=== PATIENT | male | born 1970 | race Two or more races ===

== ENCOUNTER 2021-06-16 16:16 | Emergency (ER) | payer OTHER ==
[2021-06-16 16:22] VITALS: BP 165/81; PULSE 107; RESP 18; TEMP 98.2
[2021-06-16] MEDS ORDERED: HYDROcodone/APAP 5-325MG 1 EACH TAB PO STA (16:37)
--- NOTE | 2021-06-16 16:44 | ED ---
Fall HPI - General Chief Complaint: Neck Pain/Injury Stated Complaint: Fall Time Seen by Provider: 06/16/21 16:32 Source: patient Mode of arrival: wheelchair - History of Present Illness Initial Comments: This is a pleasant 50-year-old male who got out of his truck and slipped on ice. Patient landed on his right low back area is complaining of pain to this area which is exacerbated by movement. States pain is sharp in nature. No radiation of pain. He denies any hip pain. No buttock pain. No lower extremity or upper extremity pain. Mild stiffness in the neck. Although he does not believe he struck his head or neck. Denies any chest pain. No abdominal pain. No other orthopedic complaints. No numbness or tingling. Fall, patient had no preceding events. No blood thinners. Denies chest pain or shortness of breath. No nausea or vomiting. No change in bowel much urination. No changes in vision or hearing. No vertigo. Patient has a history of hypertension, diabetes mellitus MD Complaint: fall - Related Data Previous Rx's Medication Instructions Recorded Cyclobenzaprine [Flexeril] 10 mg PO TID PRN #20 tab 06/16/21 HYDROcodone/APAP 5-325MG [[place]rop 1 tab PO Q6HR PRN 3 Days #12 tab 06/16/21 5-325] Naproxen [Naprosyn] 375 mg PO Q12HR PRN #20 tablet 06/16/21 Allergies Allergy/AdvReac Type Severity Reaction Status Date / Time No Known Allergies Allergy Verified 06/16/21 16:19 Review of Systems ROS Statement: Those systems with pertinent positive or pertinent negative responses have been documented in the HPI. ROS Other: All systems not noted in ROS Statement are negative. Past Medical History Past Medical History: Diabetes Mellitus, Hypertension Additional Past Medical History / Comment(s): aortic stenosis History of Any Multi-Drug Resistant Organisms: None Reported Past Surgical History: Cholecystectomy, Orthopedic Surgery Past Psychological History: No Psychological Hx Reported Smoking Status: Never smoker Past Alcohol Use History: None Reported Past Drug Use History: None Reported General Exam - General Exam Comments Initial Comments: 50-year-old male in no minimal distress at the time I'm seeing him, cranial nerves II through XII are intact. Patient is alert and oriented 4. Carlito Coma Scale is 15. Limitations: no limitations General appearance: alert, in distress Head exam: Present: atraumatic, normocephalic, normal inspection Eye exam: Present: normal appearance, PERRL, EOMI. Absent: scleral icterus, conjunctival injection, periorbital swelling ENT exam: Present: normal exam, mucous membranes moist Neck exam: Present: normal inspection, full ROM, other (Patient has no significant tenderness but does complain of some stiffness. No midline tenderness.). Absent: tenderness, meningismus, lymphadenopathy Respiratory exam: Present: normal lung sounds bilaterally. Absent: respiratory distress, wheezes, rales, rhonchi, stridor Cardiovascular Exam: Present: regular rate, normal rhythm, systolic murmur (Carver best at the right second intercostal space). Absent: diastolic murmur, rubs, gallop, clicks GI/Abdominal exam: Present: soft, normal bowel sounds. Absent: distended, tenderness, guarding, rebound, rigid Extremities exam: Present: normal inspection, full ROM, normal capillary refill, other (No significant tenderness to any major joints. Full range of motion all major joints. Full strength on each muscle groups. Other than the aforementioned back tenderness no significant tenderness otherwise.). Absent: tenderness, pedal edema, joint swelling, calf tenderness Back exam: Present: normal inspection, tenderness, paraspinal tenderness, vertebral tenderness (Patient has tenderness over the lumbar area approximately in the L3/L4 area. No break in skin integrity. No erythema. Straight leg raise is negative bilaterally.). Absent: full ROM, muscle spasm, rash noted Neurological exam: Present: alert, oriented X3, CN II-XII intact Psychiatric exam: Present: normal affect, normal mood Skin exam: Present: warm, dry, intact, normal color. Absent: rash Course Vital Signs 06/16/21 16:19 Temperature 98.2 F Pulse Rate 107 H Respiratory 18 Rate Blood Pressure 165/81 O2 Sat by Pulse 98 Oximetry - Reevaluation(s) Reevaluation #1: 06/16/21 17:51 Medical record is reviewed Symptoms are improved here in the emergency department--still has some pain. Asking for something else such as a muscle relaxer or another injection. Patient is informed of results and questions answered Patient in no distress Medical Decision Making - Medical Decision Making Patient has bilateral lumbar paraspinal tenderness. No spinal tenderness otherwise. No neurologic impairment. No evidence of cauda equina syndrome. No radicular pain. -There are no red flags for concerning back pathology. Specifically: -No history of cancer, this is not a mass effect, MRI not indicated. -No anticoagulation, this is not a bleed. -No fevers, no IVDU, this is not an infectious process. -With a normal neuro exam, and no urinary or bowel retention or incontinence, there is no clinical sign of motor defect or cauda equina - MRI is not indicated at this point. -No pulsating abdominal mass or risk factors for AAA. -Pain is relieved with rest, which is also less concerning. -We will treat symptomatically and discharge home with follow up instructions. -Stretching/strengthening exercise given to patient and they will be referred to physical therapy -Patient is instructed to use [id number] analgesics as directed on packaging for pain. Given the history, x-rays are warranted. We'll obtain. No evidence of head or neck trauma. No blood thinners. Heart murmur was noted, question patient, patient has history of aortic stenosis. No current symptomology related to this. Patient was told to return to the ER for any signs or symptoms worsen. Told to return immediately if any other problems arise. All questions answered. Treatment plan discussed. Patient in agreement Every effort has been made to ensure accuracy of this dictation. However, due to the limitations of electronic medical records and dictation devices, errors in charting still occur. - EKG Data -: EKG Interpreted by Me - Radiology Data Radiology results: report reviewed (No acute findings on x-rays. I did review these films myself. ), image reviewed Disposition Clinical Impression: Lumbar contusion, Lumbar strain, Cervical strain, acute, Fall Disposition: HOME SELF-CARE Condition: Stable Instructions (If sedation given, give patient instructions): Cervical Strain (ED), Low Back Strain (ED) Additional Instructions: Follow-up with your regular physician as directed. Return to the ER immediately if any symptoms worsen, new symptoms arise, or any other problems develop. Prescriptions: Cyclobenzaprine [Flexeril] 10 mg PO TID PRN #20 tab PRN Reason: Spasms Naproxen [Naprosyn] 375 mg PO Q12HR PRN #20 tablet PRN Reason: Pain HYDROcodone/APAP 5-325MG [[place]rop 5-325] 1 tab PO Q6HR PRN 3 Days #12 tab PRN Reason: Pain Is patient prescribed a controlled substance at d/c from ED?: Yes When asked, does pt state using other controlled substances?: No If opioid is for acute pain is fill amount 7 days or less?: Yes Referrals: Tami Cooper DO [Primary Care Provider] - 06/19/21 Time of Disposition: 17:45
--- NOTE | 2021-06-16 17:25 | XR ---
EXAMINATION TYPE: XR lumbar spine 2 or 3V DATE OF EXAM: 06/16/2021 COMPARISON: NONE HISTORY: Back pain TECHNIQUE: 3 views FINDINGS: Lumbar vertebrae are normal alignment. There is slight thoracolumbar levoscoliosis. There i s degenerative spurring anteriorly in the thoracic and lumbar spine. No compression fracture. Sacroil iac joints are intact. There are clips from cholecystectomy. IMPRESSION: Multilevel spondylotic changes. No fracture.
--- NOTE | 2021-06-16 17:27 | XR ---
EXAMINATION TYPE: XR cervical spine comp DATE OF EXAM: 06/16/2021 COMPARISON: NONE HISTORY: Pain TECHNIQUE: 3 views FINDINGS: Cervical vertebra have normal alignment. Posterior elements are intact. There is anterior s purring at C5-6 and C6-7. The atlantoaxial facet joint is normal. There are no cervical ribs. IMPRESSION: Spondylosis at C5-6 and C6-7. No fracture. No significant neural foraminal impingement.
[2021-06-16] MEDS ORDERED: ORPHENADRINE 30 MG/ML 2 ML VIAL IM STA (17:44)
[2021-06-16] MEDS ORDERED: KETOROLAC 15 MG/ML 1 ML VIAL IM STA (17:44)
== END 2021-06-16 18:00 | disposition home or self-care (01) ==
LOC: EC 16:16
DX: S16.1XXA Strain of muscle, fascia and tendon at neck level, initial encounter (principal); S39.012A Strain of muscle, fascia and tendon of lower back, initial encounter; E11.9 Type 2 diabetes mellitus without complications; I10 Essential (primary) hypertension; W00.0XXA Fall on same level due to ice and snow, initial encounter
CPT/HCPCS: 72050; 72100; 99283; 96372; J2360; J1885

== ENCOUNTER → 2022-10-22 | Outpatient (CLI) | payer OTHER ==
--- NOTE | 2022-10-23 10:06 | CA ---
Transthoracic Echo Report Name: Chuckie Jhaveri Age: 52 Gender: M : 1970 Exam Date: 10/22/2022 14:51 Exam Location: [facility] Ht (in): 72 Wt (lb): 255 Ordering Physician: Tami Cooper DO Attending/Referring Phys: Content Strategist Apryl Bains RDCS Procedure CPT: Indications: I50.32 CHRONIC DIASTOLIC (CONGESTIVE) HEART FAILUR Cardiac Hx: AOV replaced 2021 Technical Quality: Technically difficult study Contrast 1: Total Dose (mL): Contrast 2: Total Dose (mL): MEASUREMENTS (Male / Female) Normal Values 2D ECHO LV Diastolic Diameter PLAX 5.6 cm 4.2 - 5.9 / 3.9 - 5.3 cm LV Systolic Diameter PLAX 3.5 cm IVS Diastolic Thickness 1.3 cm 0.6 - 1.0 / 0.6 - 0.9 cm LVPW Diastolic Thickness 1.5 cm 0.6 - 1.0 / 0.6 - 0.9 cm LV Relative Wall Thickness 0.5 RV Internal Dim ED PLAX 2.9 cm LVOT Diameter 2.1 cm LA Systolic Diameter LX 4.0 cm 3.0 - 4.0 / 2.7 - 3.8 cm LV Diastolic Volume MOD BP 135.9 cm??? 67 - 155 / 56 - 104 cm??? LV Systolic Volume MOD BP 61.3 cm??? 22 - 58 / 19 - 49 cm??? LV Ejection Fraction MOD BP 54.9 % >= 55 % LV Cardiac Index MOD BP 2664.8 cm???/min???m??? LV Diastolic Volume MOD 4C 115.1 cm??? LV Systolic Volume MOD 4C 56.5 cm??? LV Ejection Fraction MOD 4C 50.9 % LV Cardiac Index MOD 4C 2095.1 cm???/min???m??? LV Diastolic Length 4C 8.0 cm LV Systolic Length 4C 7.4 cm LV Diastolic Volume MOD 2C 133.1 cm??? LV Systolic Volume MOD 2C 62.3 cm??? LV Ejection Fraction MOD 2C 53.2 % LV Cardiac Index MOD 2C 2530.5 cm???/min???m??? LV Diastolic Length 2C 8.0 cm LV Systolic Length 2C 7.3 cm LA Volume 60.4 cm??? 18 - 58 / 22 - 52 cm??? M-MODE Aortic Root Diameter MM 3.9 cm MV E Point Septal Separation 0.8 cm DOPPLER AV Peak Velocity 223.2 cm/s AV Peak Gradient 19.9 mmHg AV Mean Velocity 142.8 cm/s AV Mean Gradient 9.4 mmHg AV Velocity Time Integral 38.9 cm AI Peak Velocity 253.5 cm/s AI Peak Gradient 25.7 mmHg AI Pressure Half Time 600.9 ms LVOT Peak Velocity 181.2 cm/s LVOT Peak Gradient 13.1 mmHg AV Area Cont Eq pk 2.9 cm??? MV Peak Velocity 133.3 cm/s MV Peak Gradient 7.1 mmHg MV Mean Velocity 82.4 cm/s MV Mean Gradient 3.2 mmHg MV Velocity Time Integral 30.8 cm MV Area PHT 3.1 cm??? Mitral E Point Velocity 100.1 cm/s Mitral A Point Velocity 109.9 cm/s Mitral E to A Ratio 0.9 MV Deceleration Time 244.8 ms MV E' Velocity 5.9 cm/s Mitral E to MV E' Ratio 17.0 TR Peak Velocity 254.4 cm/s TR Peak Gradient 25.9 mmHg Right Ventricular Systolic Press 30.2 mmHg FINDINGS Left Ventricle Left ventricular ejection fraction is estimated at 55-60 %. Left ventricular cavity size normal. Mild concentric LVH Right Ventricle Normal right ventricular size. Right ventricular systolic pressure within normal limits. Right Atrium Normal right atrial size. Left Atrium Mildly increased left atrial volume. Mitral Valve Mitral annular calcification. Trace to mild mitral regurgitation. Aortic Valve Prosthetic aortic valve most likely bioprosthetic (TAVR) valve. Technically difficult study. No significant stenosis. Mean gradient 9 mmHg. Moderate periprosthetic aortic regurgitation. Tricuspid Valve Structurally normal tricuspid valve. Mild tricuspid regurgitation. Pulmonic Valve Pulmonic valve not well visualized. No pulmonic regurgitation. Pericardium No pericardial effusion. Aorta Mild aortic dilatation at the level of the sinuses of valsalva 39 mm CONCLUSIONS Technically difficult study. Normal LV size and systolic function. Estimated EF 55-60% Mild concentric LVH Most likely bioprosthetic (TAVR) valve with no significant stenosis. Moderate periprosthetic aortic regurgitation seen. These findings are limited due to limited color Doppler views in technically difficult study Mild mitral regurgitation No other significant valvular disease. No prior echo to compare with. Please correlate the finding clinically. Previewed by: Reymundo Medel MD Dr Anubhav Jain (Electronically Signed) Final Date: 23 October 2022 10:05
== END | disposition home or self-care (01) ==
LOC: RADECHMAIN 14:03
PROVIDERS: ATTEND Family Medicine
DX: I50.32 Chronic diastolic (congestive) heart failure (principal); I34.0 Nonrheumatic mitral (valve) insufficiency; I35.1 Nonrheumatic aortic (valve) insufficiency; I36.1 Nonrheumatic tricuspid (valve) insufficiency
CPT/HCPCS: 93306

== ENCOUNTER 2024-02-17 15:16 | Observation (INO) | payer OTHER ==
[2024-02-17 15:23] LABS: Glucose,Whole Blood 159 mg/dL (70-110)
[2024-02-17 16:37] LABS: Basophils % (A) 1 %; Eosinophils # (A) 0.2 k/uL (0-0.7); Eosinophils % (A) 3 %; HCT 46.6 % (39.0-53.0); HGB 15.7 gm/dL (13.0-17.5); Lymphocytes # (A) 1.7 k/uL (1.0-4.8); Lymphocytes % (A) 25 %; MCHC 33.7 g/dL (31.0-37.0); Mean Platelet Volume 7.7; Monocytes # (A) 0.5 k/uL (0-1.0); Monocytes % (A) 7 %; Neutrophils # (A) 4.3 k/uL (1.3-7.7); Neutrophils % (A) 64 %; Platelet Count 258 k/uL (150-450); RBC 5.24 m/uL (4.30-5.90); RDW 12.9 % (11.5-15.5); WBC 6.7 k/uL (3.8-10.6)
[2024-02-17 16:42] LABS: Appearance,Urine Clear (Clear); Bilirubin,Urine Negative (Negative); Blood,Urine Negative (Negative); Color,Urine Colorless; Glucose,Urine (UA) 4+ (Negative); Ketones,Urine Negative (Negative); Leukocyte Esterase,Urine Negative (Negative); Nitrite,Urine Negative (Negative); Protein,Urine Negative (Negative); Specific Gravity,Urine 1.011 (1.001-1.035); Urobilinogen,Urine <2.0 mg/dL (<2.0)
[2024-02-17 16:51] LABS: ALT 30 U/L (4-49); AST 29 U/L (17-59); African American GFR (CKD) >90 (>60 ml/min/1.73 sqM); Albumin 4.7 g/dL (3.5-5.0); Alkaline Phosphatase 60 U/L (38-126); Anion Gap 6 mmol/L; Blood Urea Nitrogen 15 mg/dL (9-20); Calcium 9.1 mg/dL (8.4-10.2); Carbon Dioxide 27 mmol/L (22-30); Chloride 102 mmol/L (98-107); Creatine Kinase 132 U/L (55-170); Glucose 156 mg/dL (74-99); Non-African American GFR(CKD) >90 (>60 ml/min/1.73 sqM); Potassium 4.5 mmol/L (3.5-5.1); Sodium 135 mmol/L (137-145); Total Bilirubin 0.9 mg/dL (0.2-1.3); Total Protein 7.3 g/dL (6.3-8.2)
--- NOTE | 2024-02-17 17:02 | XR ---
EXAMINATION TYPE: XR chest 2V DATE OF EXAM: 02/17/2024 4:40 PM COMPARISON: None CLINICAL INDICATION: Male, 53 years old with history of altered mental status; LOCATED [facility]IN [facility] TECHNIQUE: XR chest 2V Frontal and lateral views of the chest. FINDINGS: Lungs/Pleura: There is no evidence of pleural effusion, focal consolidation, or pneumothorax. Pulmonary vascularity: Unremarkable. Heart/mediastinum: Cardiomediastinal silhouette is prominent in size. Musculoskeletal: No acute osseous pathology. Midline sternotomy wires are noted. IMPRESSION: No acute cardiopulmonary disease/process. [facility], , 02/17/2024 5:00 PM
[2024-02-17 17:14] LABS: INR 1.6 (<1.2); Partial Thromboplastin Time 26.8 sec (22.0-30.0); Prothrombin Time 16.7 sec (10.0-12.5)
[2024-02-17 17:19] LABS: Amphetamine Screen,Urine Not Detected (NotDetected); Barbiturate Screen,Urine Not Detected (NotDetected); Benzodiazepines Screen,Urine Not Detected (NotDetected); Cocaine Screen,Urine Not Detected (NotDetected); Methadone Screen, Urine Not Detected (NotDetected); Opiate Screen,Urine Not Detected (NotDetected); Oxycodone Screen, Urine Not Detected (NotDetected); Phencyclidine Screen,Urine Not Detected (NotDetected); Tricyclic Antidepressant,Urine Not Detected (NotDetected); Urn Cannabinoid Scrn Not Detected (NotDetected)
--- NOTE | 2024-02-17 18:13 | CT ---
EXAMINATION TYPE: CT brain wo con DATE OF EXAM: 02/17/2024 6:00 PM COMPARISON: None. CLINICAL INDICATION: Male, 53 years old with history of Neuro deficit, acute, stroke suspected, confu evon TECHNIQUE: Brain: Axial CT images of the brain were obtained with coronal and sagittal reformats created and rev iewed. Contrast used: None. Oral contrast used: None. CT DLP: combined 2211 mGycm, Automated exposure control for dose reduction was used. FINDINGS: Brain: Extra-axial spaces: No abnormal extra-axial fluid collections. Ventricular system: Within normal limits Cerebral parenchyma: Left parietal lobe encephalomalacia. No acute intraparenchymal hemorrhage or mas s effect. The conte-white junction is well differentiated. Cerebellum: Unremarkable. Mass effect: No evidence of midline shift. Intracranial vasculature: unremarkable Soft tissues: Normal. Calvarium/osseous structures: No depressed skull fracture. Paranasal sinuses and mastoid air cells: Mild scattered paranasal sinus disease. Visualized orbits: Orbital contents are intact. 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 Correlate with history of no prior history cou ld be related to onset of confusion. No evidence for acute/subacute ischemia. [facility], , 02/17/2024 6:11 PM
--- NOTE | 2024-02-17 18:24 | CT ---
EXAMINATION TYPE: CT angio head neck DATE OF EXAM: 02/17/2024 6:00 PM COMPARISON: CT head same day. CLINICAL INDICATION: Male, 53 years old with history of Neuro deficit, acute, stroke suspected; PHH, confusion TECHNIQUE: Axially acquired helical CT angiogram of the head and neck was obtained with contrast. Axi al images are supplemented with 3D reconstructions and MIP images which were post-processed at an in dependent workstation. NASCET criteria used. Contrast used:65 ml mL of Isovue 370 with IV Contrast, Oral contrast used: None. CT DLP: combined 2211 mGycm, Automated exposure control for dose reduction was used. FINDINGS: CTA HEAD: No evidence of acute intracranial hemorrhage, mass effect, or midline shift. The ventricles, sulci, a nd cisterns are unremarkable. Vertebral arteries: The vertebral arteries are patent. Vertebral artery dominance: Right diminutive intracranial portion on the left vertebral artery. Possi jaqui terminating is a posterior inferior cerebellar artery. Basilar artery: The basilar artery is intact. The basilar artery bifurcation is normal. Internal Carotid arteries: The cervical, petrous, cavernous and supraclinoid segments are normal. KAMRAN: Patent with no evidence of aneurysm. ACOM: Present without evidence of aneurysm. MCA: Patent with no evidence of aneurysm. FOOD COUNTER ATTENDANT: Patent with no evidence of aneurysm. PCOM: Hypoplastic bilaterally. Dural sinuses: Patent. CTA NECK: Right Carotid System: The common carotid artery and external carotid artery are patent. The carotid bifurcation demonstrate s no evidence of hemodynamically significant stenosis. The remaining portions of the internal carotid artery demonstrate normal size without significant narrowing. Left Carotid System: The common carotid artery and external carotid artery are patent. The carotid bifurcation demonstrate s no evidence of hemodynamically significant stenosis. The remaining portions of the internal carotid artery demonstrate normal size without significant narrowing. Vertebral arteries are patent without evidence hemodynamically significant stenosis. There is a three-vessel aortic arch. The origins of the great vessels are patent. No evidence of hemo dynamically significant stenosis. IMPRESSION: 1. No evidence of dissection of the cervical internal carotid arteries or vertebral arteries. 2. No any evidence of significant stenosis at the carotid bifurcations. 3. No evidence of intracranial high-grade stenosis or intracranial aneurysm. 4. Diminutive intracranial portion of the left vertebral artery. [facility], Workstation: [id number], 02/17/2024 6:21 PM
--- NOTE | 2024-02-17 19:40 | ED ---
General Adult HPI - General Chief complaint: Neuro Symptoms/Deficit Stated complaint: Dizziness,AMS Source: patient Mode of arrival: ambulatory Limitations: no limitations - History of Present Illness Initial comments: 53-year-old male with past medical history of mechanical valve on Coumadin who presents to the emergency department reporting confusion and inability to find his words for the past month. States that he has had intermittent episodes where he feels like he cannot find his words. He has been in "a fog". When he lays down to sleep at night he has a vertiginous feeling. Denies any weakness in his arms or legs. No visual changes. He denies any head injury. No history of stroke. He does take Coumadin for his heart valve. States that he was told by his budget assistant that his INR should be between 1 and 2. His INR yesterday was 1.5 and his budget assistant was okay with this. He denies history of stroke. No swallowing difficulties. He denies any chest pain or shortness of breath. No other alleviating, precipitating modifying factors - Related Data Home Medications Medication Instructions Recorded Confirmed Empagliflozin [Jardiance] 25 mg PO DAILY 02/17/24 02/17/24 Metoprolol Succinate (ER) [Toprol 25 mg PO DAILY 02/17/24 02/17/24 XL] Semaglutide [Ozempic] 1 mg SQ MO 02/17/24 02/17/24 Spironolactone 12.5 mg PO DAILY 02/17/24 02/17/24 Warfarin [Coumadin] 7.5 mg PO SUTUTHSA@199902/17/24 02/17/24 Warfarin [Coumadin] 10 mg PO MOWEFR@199902/17/24 02/17/24 metFORMIN HCL 1,000 mg PO BID 02/17/24 02/17/24 Previous Rx's Medication Instructions Recorded levETIRAcetam [Keppra] 500 mg PO Q12HR 30 Days #60 tab 02/19/24 Allergies Allergy/AdvReac Type Severity Reaction Status Date / Time No Known Allergies Allergy Verified 02/17/24 18:34 Review of Systems ROS Statement: Those systems with pertinent positive or pertinent negative responses have been documented in the HPI. ROS Other: All systems not noted in ROS Statement are negative. Past Medical History Past Medical History: Diabetes Mellitus, Hypertension Additional Past Medical History / Comment(s): aortic stenosis History of Any Multi-Drug Resistant Organisms: None Reported Past Surgical History: Cholecystectomy, Orthopedic Surgery Past Psychological History: No Psychological Hx Reported Smoking Status: Never smoker Past Alcohol Use History: Occasional Past Drug Use History: None Reported General Exam Limitations: no limitations General appearance: alert, in no apparent distress Head exam: Present: atraumatic, normocephalic, normal inspection Eye exam: Present: normal appearance, PERRL, EOMI. Absent: scleral icterus, conjunctival injection, periorbital swelling ENT exam: Present: normal exam, mucous membranes moist Neck exam: Present: normal inspection. Absent: tenderness, meningismus, lymphadenopathy Respiratory exam: Present: normal lung sounds bilaterally. Absent: respiratory distress, wheezes, rales, rhonchi, stridor Cardiovascular Exam: Present: regular rate, normal rhythm, normal heart sounds. Absent: systolic murmur, diastolic murmur, rubs, gallop, clicks GI/Abdominal exam: Present: soft, normal bowel sounds. Absent: distended, tenderness, guarding, rebound, rigid Extremities exam: Present: normal inspection, full ROM, normal capillary refill. Absent: tenderness, pedal edema, joint swelling, calf tenderness Back exam: Present: normal inspection Neurological exam: Present: alert, oriented X3, CN II-XII intact Psychiatric exam: Present: normal affect, normal mood Skin exam: Present: warm, dry, intact, normal color. Absent: rash Course Vital Signs 02/17/24 02/17/24 02/17/24 15:17 16:27 17:10 Temperature 97.5 F L Pulse Rate 90 91 89 Respiratory 20 18 18 Rate Blood Pressure 186/93 137/83 O2 Sat by Pulse 99 97 Oximetry 02/17/24 02/17/24 02/17/24 17:37 18:25 20:15 Temperature 98.2 F Pulse Rate 88 82 100 Respiratory 18 18 20 Rate Blood Pressure 144/74 128/77 113/76 O2 Sat by Pulse 96 97 95 Oximetry 02/17/24 21:06 Temperature 98.2 F Pulse Rate 89 Respiratory 20 Rate Blood Pressure 125/69 O2 Sat by Pulse 95 Oximetry Medical Decision Making - Medical Decision Making Was pt. sent in by a medical professional or institution (, PA, GLASSWARE DEFECT REPAIRER, urgent care, hospital, or fdc...) When possible be specific @ -No Did you speak to anyone other than the patient for history (EMS, parent, family, police, friend...)? What history was obtained from this source @ -Spoke with brother for history Did you review nursing and triage notes (agree or disagree)? Why? @ -I reviewed and agree with nursing and triage notes Were old charts reviewed (outside hosp., previous admission, EMS record, old EKG, old radiological studies, urgent care reports/EKG's, fdc records)? Report findings @ -No old charts were reviewed Differential Diagnosis (chest pain, altered mental status, abdominal pain women, abdominal pain men, vaginal bleeding, weakness, fever, dyspnea, syncope, headache, dizziness, GI bleed, back pain, seizure, CVA, palpatations, mental health, musculoskeletal)? @ -Differential Altered Mental Status: Hypoglycemia, DKA, hypercapnia, ETOH, overdose, CO poisoning, trauma, myxedema coma, HTN encephalopathy, infection, encephalitis, psychosis, intercranial hemorrhage, hepatic encephalopathy, meningitis, CVA, this is not meant to be an all-inclusive list EKG interpreted by me (3pts min.). @ -Yes and demonstrates sinus rhythm with a rate of 91. GA interval 171. QRS 145. QTc of 432. Right bundle branch block. No acute ST segment elevation X-rays interpreted by me (1pt min.). @ -Yes and demonstrates no acute process CT interpreted by me (1pt min.). @ -Yes and demonstrates a large area of encephalomalacia U/S interpreted by me (1pt. min.). @ -None done What testing was considered but not performed or refused? (CT, X-rays, U/S, labs)? Why? @ -None What meds were considered but not given or refused? Why? @ -None Did you discuss the management of the patient with other professionals (professionals i.e. , PA, GLASSWARE DEFECT REPAIRER, lab, RT, psych nurse, social studies department chair, marine oil terminal superintendent, teacher, transportation security officer, piano case and bench assembler)? Give summary @ -Spoke with [facility] for admission Was smoking cessation discussed for >3mins.? @ -No Was critical care preformed (if so, how long)? @ -No Were there social determinants of health that impacted care today? How? (Homeles sness, low income, unemployed, alcoholism, drug addiction, transportation, low edu. Level, literacy, decrease access to med. care, prison, rehab)? @ -No Was there de-escalation of care discussed even if they declined (Discuss DNR or withdrawal of care, Hospice)? DNR status @ -No What co-morbidities impacted this encounter? (DM, HTN, Smoking, COPD, CAD, Cancer, CVA, ARF, Chemo, Hep., AIDS, mental health diagnosis, sleep apnea, morbid obesity)? @ -Mechanical heart valve Was patient admitted / discharged? Hospital course, mention meds given and route, prescriptions, significant lab abnormalities, going to OR and other pertinent info. @ -Upon arrival patient seen and evaluated in bed 17. Thorough history and physical exam was performed. IV access was established. Laboratory studies were conducted. CT of the brain is performed which demonstrates a large area of encephalomalacia. I am concerned about the patient's subtherapeutic INR with visible stroke on CT. I did recommend patient be admitted to the hospital for further evaluation by neurology. Patient was agreeable to this. Spoke with [facility] for admission Undiagnosed new problem with uncertain prognosis? @ -No Drug Therapy requiring intensive monitoring for toxicity (Heparin, Nitro, Insulin, Cardizem)? @ -No Were any procedures done? @ -No Diagnosis/symptom? @ -Acute encephalopathy, acute speech deficit, encephalomalacia on CT Acute, or Chronic, or Acute on Chronic? @ -Acute Uncomplicated (without systemic symptoms) or Complicated (systemic symptoms)? @ -Complicated Side effects of treatment? @ -No Exacerbation, Progression, or Severe Exacerbation? @ -No Poses a threat to life or bodily function? How? (Chest pain, [place], [place], pneumonia, PE, COPD, DKA, ARF, appy, cholecystitis, CVA, Diverticulitis, Homicidal, Hicks icidal, threat to staff... and all critical care pts) @ -Yes as patient previously had large stroke - Lab Data Result diagrams: 02/19/24 06:29 02/19/24 06:29 Lab Results 02/17/24 02/17/24 02/17/24 Range/Units 15:22 16:24 16:24 WBC 6.7 (3.8-10.6) k/uL RBC 5.24 (4.30-5.90) m/uL Hgb 15.7 (13.0-17.5) gm/dL Hct 46.6 (39.0-53.0) % MCV 89.0 (80.0-100.0) fL MCH 30.0 (25.0-35.0) pg MCHC 33.7 (31.0-37.0) g/dL RDW 12.9 (11.5-15.5) % Plt Count 258 (150-450) k/uL MPV 7.7 Neutrophils % 64 % Lymphocytes % 25 % Monocytes % 7 % Eosinophils % 3 % Basophils % 1 % Neutrophils # 4.3 (1.3-7.7) k/uL Lymphocytes # 1.7 (1.0-4.8) k/uL Monocytes # 0.5 (0-1.0) k/uL Eosinophils # 0.2 (0-0.7) k/uL Basophils # 0.0 (0-0.2) k/uL PT 16.7 H (10.0-12.5) sec INR 1.6 H (<1.2) APTT 26.8 (22.0-30.0) sec Sodium (137-145) mmol/L Potassium (3.5-5.1) mmol/L Chloride (98-107) mmol/L Carbon Dioxide (22-30) mmol/L Anion Gap mmol/L BUN (9-20) mg/dL Creatinine (0.66-1.25) mg/dL Est GFR (CKD-EPI)AfAm (>60 ml/min/1.73 sqM) Est GFR (CKD-EPI)NonAf (>60 ml/min/1.73 sqM) Glucose (74-99) mg/dL POC Glucose (mg/dL) 159 H (70-110) mg/dL POC Glu Pit Operator ID [facility] Calcium (8.4-10.2) mg/dL Total Bilirubin (0.2-1.3) mg/dL AST (17-59) U/L ALT (4-49) U/L Alkaline Phosphatase (38-126) U/L Creatine Kinase (55-170) U/L Troponin I (0.000-0.034) ng/mL Total Protein (6.3-8.2) g/dL Albumin (3.5-5.0) g/dL Urine Color Urine Appearance (Clear) Urine pH (5.0-8.0) Ur Specific [place] (1.001-1.035) Urine Protein (Negative) Urine Glucose (UA) (Negative) Urine Ketones (Negative) Urine Blood (Negative) Urine Nitrite (Negative) Urine Bilirubin (Negative) Urine Urobilinogen (<2.0) mg/dL Ur Leukocyte Esterase (Negative) Urine Opiates Screen (NotDetected) Ur Oxycodone Screen (NotDetected) Urine Methadone Screen (NotDetected) Ur Barbiturates Screen (NotDetected) U Tricyclic Antidepress (NotDetected) Ur Phencyclidine Scrn (NotDetected) Ur Amphetamines Screen (NotDetected) U Methamphetamines Scrn (NotDetected) U Benzodiazepines Scrn (NotDetected) Urine Cocaine Screen (NotDetected) U Marijuana (THC) Screen (NotDetected) 02/17/24 02/17/24 02/17/24 Range/Units 16:24 16:24 16:24 WBC (3.8-10.6) k/uL RBC (4.30-5.90) m/uL Hgb (13.0-17.5) gm/dL Hct (39.0-53.0) % MCV (80.0-100.0) fL MCH (25.0-35.0) pg MCHC (31.0-37.0) g/dL RDW (11.5-15.5) % Plt Count (150-450) k/uL MPV Neutrophils % % Lymphocytes % % Monocytes % % Eosinophils % % Basophils % % Neutrophils # (1.3-7.7) k/uL Lymphocytes # (1.0-4.8) k/uL Monocytes # (0-1.0) k/uL Eosinophils # (0-0.7) k/uL Basophils # (0-0.2) k/uL PT (10.0-12.5) sec INR (<1.2) APTT (22.0-30.0) sec Sodium 135 L (137-145) mmol/L Potassium 4.5 (3.5-5.1) mmol/L Chloride 102 (98-107) mmol/L Carbon Dioxide 27 (22-30) mmol/L Anion Gap 6 mmol/L BUN 15 (9-20) mg/dL Creatinine 0.79 (0.66-1.25) mg/dL Est GFR (CKD-EPI)AfAm >90 (>60 ml/min/1.73 sqM) Est GFR (CKD-EPI)NonAf >90 (>60 ml/min/1.73 sqM) Glucose 156 H (74-99) mg/dL POC Glucose (mg/dL) (70-110) mg/dL POC Glu Pit Operator ID Calcium 9.1 (8.4-10.2) mg/dL Total Bilirubin 0.9 (0.2-1.3) mg/dL AST 29 (17-59) U/L ALT 30 (4-49) U/L Alkaline Phosphatase 60 (38-126) U/L Creatine Kinase 132 (55-170) U/L Troponin I 0.019 (0.000-0.034) ng/mL Total Protein 7.3 (6.3-8.2) g/dL Albumin 4.7 (3.5-5.0) g/dL Urine Color Colorless Urine Appearance Clear (Clear) Urine pH 5.0 (5.0-8.0) Ur Specific [place] 1.011 (1.001-1.035) Urine Protein Negative (Negative) Urine Glucose (UA) 4+ H (Negative) Urine Ketones Negative (Negative) Urine Blood Negative (Negative) Urine Nitrite Negative (Negative) Urine Bilirubin Negative (Negative) Urine Urobilinogen <2.0 (<2.0) mg/dL Ur Leukocyte Esterase Negative (Negative) Urine Opiates Screen Not Detected (NotDetected) Ur Oxycodone Screen Not Detected (NotDetected) Urine Methadone Screen Not Detected (NotDetected) Ur Barbiturates Screen Not Detected (NotDetected) U Tricyclic Antidepress Not Detected (NotDetected) Ur Phencyclidine Scrn Not Detected (NotDetected) Ur Amphetamines Screen Not Detected (NotDetected) U Methamphetamines Scrn Not Detected (NotDetected) U Benzodiazepines Scrn Not Detected (NotDetected) Urine Cocaine Screen Not Detected (NotDetected) U Marijuana (THC) Screen Not Detected (NotDetected) Disposition Clinical Impression: Cerebrovascular accident (CVA), Encephalopathy acute, Vertigo Disposition: ADMITTED IP TO THIS HOSP Condition: Stable Is patient prescribed a controlled substance at d/c from ED?: No Time of Disposition: 20:16 Decision to Admit Reason: Admit from EC Decision Date: 02/17/24 Decision Time: 20:18
[2024-02-17] MEDS ORDERED: NALOXONE 0.4 MG/ML 1 ML VIAL IV PRN (20:18)
[2024-02-17] MEDS: WARFARIN 10 MG TAB PO STA (22:29)
[2024-02-17] MEDS: ASPIRIN 325 MG TAB PO STA (22:29)
[2024-02-17] MEDS: metFORMIN 500 MG TAB PO SCH (22:29)
[2024-02-18 07:36] LABS: Basophils % (A) 0 %; Eosinophils # (A) 0.2 k/uL (0-0.7); Eosinophils % (A) 3 %; HCT 45.7 % (39.0-53.0); HGB 15.2 gm/dL (13.0-17.5); Lymphocytes # (A) 1.5 k/uL (1.0-4.8); Lymphocytes % (A) 22 %; MCHC 33.3 g/dL (31.0-37.0); MCV 89.9 fL (80.0-100.0); Monocytes # (A) 0.5 k/uL (0-1.0); Monocytes % (A) 7 %; Neutrophils # (A) 4.6 k/uL (1.3-7.7); Neutrophils % (A) 66 %; Platelet Count 230 k/uL (150-450); RBC 5.08 m/uL (4.30-5.90); RDW 12.9 % (11.5-15.5); WBC 6.9 k/uL (3.8-10.6)
[2024-02-18 07:44] LABS: INR 1.5 (<1.2); Prothrombin Time 15.9 sec (10.0-12.5)
[2024-02-18 08:04] LABS: African American GFR (CKD) >90 (>60 ml/min/1.73 sqM); Anion Gap 5 mmol/L; Blood Urea Nitrogen 17 mg/dL (9-20); Calcium 8.8 mg/dL (8.4-10.2); Carbon Dioxide 30 mmol/L (22-30); Chloride 103 mmol/L (98-107); Glucose 120 mg/dL (74-99); Non-African American GFR(CKD) >90 (>60 ml/min/1.73 sqM); Potassium 4.5 mmol/L (3.5-5.1); Sodium 138 mmol/L (137-145)
[2024-02-18] MEDS: DAPAGLIFLOZIN PROPANEDIOL 10 MG TABLET PO SCH (08:06)
[2024-02-18] MEDS: METOPROLOL SUCCINATE (ER) 25 MG TAB.ER.24H PO SCH (08:06)
[2024-02-18] MEDS: SPIRONOLACTONE 25 MG TAB PO SCH (08:06)
[2024-02-18 12:12] LABS: Glucose,Whole Blood 116 mg/dL (70-110)
--- NOTE | 2024-02-18 15:51 | MR ---
INDICATION: Patient age:Male; 53 years old; Reason for study: slurred speech and confusion; PHH. COMPARISON: CT brain 02/17/2024, CTA head and neck 02/17/2024. TECHNIQUE: Multi planar, multi sequence imaging was performed through the brain without the administr ation of intravenous contrast. FINDINGS: The conte-white junctions, ventricular system, basal cisterns appear unremarkable. Age-appropriate cer ebral parenchymal volume. Diffusion-weighted imaging shows no evidence of restricted diffusion to sug gest acute/subacute infarct. Intracranial arterial flow voids are maintained. Midline structures show no abnormality. Left parietal/occipital lobe watershed region of encephalomalacia from prior injury demonstrated with volume loss and gliosis. A few areas of high T2 signal intensity are seen within th e periventricular white matter. The susceptibility weighted images demonstrate a few scattered foci o f prior microhemorrhage. After administration of gadolinium, no abnormal enhancement is seen. The bone marrow signal is within normal limits. The globes are unremarkable. Mild mucosal thickenin g of the ethmoid sinuses with moderate because of thickening of the left sphenoid sinus. IMPRESSION: 1. No evidence of acute/subacute infarct. 2. Remote ischemic injury to the left parietal-occipital watershed region. 3. Nonspecific white matter changes, likely related to small vessel ischemic disease. [facility], , 02/18/2024 3:48 PM
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
[2024-02-18 16:07] VITALS: RESP 16
[2024-02-18 16:26] LABS: Glucose,Whole Blood 120 mg/dL (70-110)
[2024-02-18] MEDS: ACETAMINOPHEN TAB 325 MG TAB PO PRN (18:45)
[2024-02-18 20:14] LABS: Glucose,Whole Blood 142 mg/dL (70-110)
[2024-02-18] MEDS: WARFARIN 7.5 MG TAB PO SCH (20:22)
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
--- NOTE | 2024-02-19 04:32 | EEG ---
ELECTROENCEPHALOGRAM REPORT PREAMBLE: This is a 53-year-old male with episodes of confusion. CURRENT MEDICATIONS: 1. Coumadin. 2. Aldactone. 3. Toprol. 4. Metformin. 5. Farxiga. EEG FINDINGS: This is a 21-channel digital EEG recorded with video component, utilizing 10/20 international system with referential and bipolar montages. Background consists of well-developed, well-regulated moderate voltage activity in the 11 hertz alpha. Background is posterior dominant and reactive to eye opening and closing. Photic driving response was not seen. Intermittent mild focal theta slowing in the left temporal region was seen. Drowsiness was seen with presence of bilaterally symmetric theta frequency rhythm. However, deeper stages of sleep were not seen. No definitive focal or generalized epileptiform activity was seen. EKG channel showed no obvious arrhythmia. IMPRESSION: This is a mildly abnormal EEG due to intermittent focal theta slowing in the left temporal region. This may suggest underlying focal cortical neuronal dysfunction. No epileptiform activity was seen. MMODL / IJN: [id number] / [facility]ITALAndrey
[2024-02-19 06:17] LABS: Glucose,Whole Blood 143 mg/dL (70-110)
[2024-02-19 07:02] LABS: HCT 45.2 % (39.0-53.0); HGB 15.3 gm/dL (13.0-17.5); MCH 30.3 pg (25.0-35.0); MCHC 33.9 g/dL (31.0-37.0); MCV 89.4 fL (80.0-100.0); Mean Platelet Volume 7.3; Platelet Count 235 k/uL (150-450); RBC 5.05 m/uL (4.30-5.90); RDW 13.2 % (11.5-15.5); WBC 5.7 k/uL (3.8-10.6)
[2024-02-19 07:11] LABS: INR 1.6 (<1.2); Prothrombin Time 16.2 sec (10.0-12.5)
[2024-02-19 08:28] LABS: African American GFR (CKD) >90 (>60 ml/min/1.73 sqM); Anion Gap 5 mmol/L; Blood Urea Nitrogen 17 mg/dL (9-20); Calcium 8.7 mg/dL (8.4-10.2); Carbon Dioxide 25 mmol/L (22-30); Chloride 104 mmol/L (98-107); Glucose 125 mg/dL (74-99); Non-African American GFR(CKD) >90 (>60 ml/min/1.73 sqM); Potassium 4.3 mmol/L (3.5-5.1); Sodium 134 mmol/L (137-145)
--- NOTE | 2024-02-19 09:56 | P.CRDCN ---
History of Present Illness History of present illness: HISTORY OF PRESENT ILLNESS: This is a 53-year-old male with a past medical history significant for diabetes, hypertension, and bicuspid aortic valve with mechanical aortic valve replacement with On-X valve [address] [facility]. Patient follows with Dr. Surinder Uribe at [facility]. We have been asked to see the patient in consultation for mechanical aortic valve on Coumadin. Patient examined at the bedside. Patient presented to the hospital with multiple vague symptoms. Patient states that he has been feeling somewhat confused. He states that it felt like his blood sugars were low although when he checked it they were within normal limits. He states that he was having issues focusing and could not grasp what he was trying to do. He reports feeling spacey like he was going to pass out. He states when he lays down at night he grabs his head because his head is spinning. He states he has been having these episodes about once a week for the past month although now they are occurring more frequently. He denies any chest pain or pressure. He denies any shortness of breath. He reports 1 cup of coffee a day. He is a lifetime non-smoker. He does report occasional alcohol use. 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 He states he usually drinks about once a week. DIAGNOSTICS: - EKG reveals sinus mechanism with right bundle branch block - Chest xray negative for acute process - Laboratory data: WBC 5.7. Hemoglobin 15.3. Platelet count 235. Sodium 134. Potassium 4.3. BUN 17. Creatinine 0.71. - Current home cardiac medications include warfarin 10 mg Thursday and 7.5 mg Thursday, spironolactone 12.5 mg daily, and metoprolol succinate 25 mg daily - Most recent echocardiogram obtained in October 2022 revealing ejection fraction 55 to 60%, trace to mild MR, prosthetic aortic valve with no significant stenosis, moderate periprosthetic aortic regurgitation, mild tricuspid regurgitation. REVIEW OF SYSTEMS: At the time of my exam: CONSTITUTIONAL: Denies fever or chills. HEENT: Denies blurred vision, vision changes, or eye pain. Denies hemoptysis CARDIOVASCULAR: Denies chest pain. Denies orthopnea. Denies PND. Denies palpitations RESPIRATORY: Denies shortness of breath. GASTROINTESTINAL: Denies abdominal pain. Denies nausea or vomiting. HEMATOLOGIC: Denies bleeding disorders. GENITOURINARY: Denies any blood in urine. SKIN: Denies pruitis. Denies rash. PHYSICAL EXAM: VITAL SIGNS: Reviewed. GENERAL: Well-developed in no acute distress. HEENT: Head is normocephalic. Pupils are equal, round. Sclerae anicteric. Mucous membranes of the mouth are moist. Neck supple. No JVD or thyromegaly LUNGS: Respirations even and unlabored. Lungs essentially clear to auscultation bilaterally. HEART: Regular rate and rhythm. S1 and S2 heard. Systolic murmur noted. Grand mechanical click auscultated. ABDOMEN: Soft. Nondistended. Nontender. EXTREMITIES: Normal range of motion. No clubbing or cyanosis. Peripheral pulses intact. No lower extremity edema NEUROLOGIC: Awake and alert. Oriented x 3. ASSESSMENT: Episodes of confusion, dizziness, difficulty focusing, etiology unclear Bicuspid aortic valve, status post mechanical aortic valve replacement with On-X valve, 2 years ago at [facility] Hypertension Diabetes Alcohol use with binge drinking History of traumatic brain injury Remote ischemic injury to left parietal occipital watershed region, per MRI PLAN: Obtain 2D echo to assess cardiac structure and function. Patient's mechanical valve sounds crisp and doubt any thrombus formation. No indication for ABRAN at this time. Patient with On-X mechanical aortic valve. Acceptable INR range 1.5-2 Continue additional cardiac medications Patient educated on adverse effects of alcohol use and binge drinking. 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 Signing provider agrees with the documented findings, assessment, and plan of care documented by RESEARCH PROFESSOR as a scribe. Past Medical History Past Medical History: Diabetes Mellitus, Hypertension Additional Past Medical History / Comment(s): aortic stenosis History of Any Multi-Drug Resistant Organisms: None Reported Past Surgical History: Cholecystectomy, Orthopedic Surgery Past Psychological History: No Psychological Hx Reported Smoking Status: Never smoker Past Alcohol Use History: Occasional Past Drug Use History: None Reported Medications and Allergies Home Medications Medication Instructions Recorded Confirmed Type Empagliflozin [Jardiance] 25 mg PO DAILY 02/17/24 02/17/24 History Metoprolol Succinate (ER) [Toprol 25 mg PO DAILY 02/17/24 02/17/24 History Xl] Semaglutide [Ozempic] 1 mg SQ MO 02/17/24 02/17/24 History Spironolactone 12.5 mg PO DAILY 02/17/24 02/17/24 History Warfarin [Coumadin] 7.5 mg PO SUTUTHSA@199902/17/24 02/17/24 History Warfarin [Coumadin] 10 mg PO MOWEFR@199902/17/24 02/17/24 History metFORMIN HCL 1,000 mg PO BID 02/17/24 02/17/24 History Allergies Allergy/AdvReac Type Severity Reaction Status Date / Time No Known Allergies Allergy Verified 02/17/24 18:34 Physical Exam Vitals: Vital Signs Temp Pulse Resp BP Pulse Ox 02/19/24 04:00 98.2 F 89 16 131/85 96 02/19/24 02:00 89 16 02/19/24 00:00 98.0 F 85 16 129/78 98 02/18/24 20:00 98.3 F 81 16 124/79 96 02/18/24 16:07 98.2 F 80 16 143/92 97 02/18/24 11:03 97.9 F 80 15 120/72 95 02/18/24 07:59 86 18 150/78 97 Intake and Output 02/18/24 02/19/24 02/19/24 22:59 06:59 14:59 Intake Total 250 10 Balance 250 10 Intake: IV 10 10 Invasive Line 2 10 10 Oral 240 0 Other: Voiding Method Toilet Toilet # Voids 1 1 Weight 115.7 kg Results 02/19/24 06:29 02/19/24 06:29 Coagulation 02/19/24 Range/Units 06:29 PT 16.2 H (10.0-12.5) sec CBC 02/19/24 Range/Units 06:29 WBC 5.7 (3.8-10.6) k/uL RBC 5.05 (4.30-5.90) m/uL Hgb 15.3 (13.0-17.5) gm/dL Hct 45.2 (39.0-53.0) % Plt Count 235 (150-450) k/uL Comprehensive Metabolic Panel 02/18/24 Range/Units 06:36 Sodium 138 (137-145) mmol/L Potassium 4.5 (3.5-5.1) mmol/L Chloride 103 (98-107) mmol/L Carbon Dioxide 30 (22-30) mmol/L BUN 17 (9-20) mg/dL Creatinine 0.81 (0.66-1.25) mg/dL Glucose 120 H (74-99) mg/dL Calcium 8.8 (8.4-10.2) mg/dL Current Medications Generic Name Dose Route Start Last Admin Trade Name Freq PRN Reason Stop Dose Admin Acetaminophen 325 mg 02/18/24 18:39 02/18/24 18:45 Acetaminophen Tab 325 Mg Tab PO 325 mg Q6HR PRN Administration Fever and/ or Pain Dapagliflozin 10 mg 02/18/24 09:00 02/18/24 08:06 Dapagliflozin Propanediol 10 Mg Tablet PO 10 mg DAILY VERO Administration Metformin HCl 1,000 mg 02/17/24 21:00 02/18/24 20:22 Metformin 500 Mg Tab PO 1,000 mg BID VERO Administration Metoprolol Succinate 25 mg 02/18/24 09:00 02/18/24 08:06 Metoprolol Succinate (Er) 25 Mg Tab.Er.24h PO 25 mg DAILY VERO Administration Naloxone HCl 0.2 mg 02/17/24 20:18 Naloxone 0.4 Mg/Ml 1 Ml Vial IV Q2M PRN Opioid Reversal Spironolactone 12.5 mg 02/18/24 09:00 02/18/24 08:06 Spironolactone 25 Mg Tab PO 12.5 mg DAILY VERO Administration Warfarin Sodium 10 mg 02/19/24 20:00 Warfarin 10 Mg Tab PO MOWEFR@1999 [facility] Protocol Warfarin Sodium 7.5 mg 02/18/24 20:00 02/18/24 20:22 Warfarin 7.5 Mg Tab PO 7.5 mg SUTUTHSA@1999 [facility] Administration Protocol Intake and Output 02/18/24 02/19/24 02/19/24 22:59 06:59 14:59 Intake Total 250 10 Balance 250 10 Intake: IV 10 10 Invasive Line 2 10 10 Oral 240 0 Other: Voiding Method Toilet Toilet # Voids 1 1 Weight 115.7 kg 02/19/24 06:29 02/18/24 06:36
[2024-02-19 11:35] LABS: Glucose,Whole Blood 133 mg/dL (70-110)
[2024-02-19] MEDS: levETIRAcetam 500 MG TAB PO SCH (11:58)
[2024-02-19 12:28] VITALS: BP 134/78; PULSE 83; TEMP 97.7
--- NOTE | 2024-02-19 12:47 | CA ---
Transthoracic Echo Report Name: Chuckie Jhaveri Age: 53 Gender: M : 1970 Exam Date: 02/19/2024 08:02 Exam Location: [place] [facility] Ht (in): 72 Wt (lb): 255 Ordering Physician: Amna Jensen MD Attending/Referring Phys: Spike Driver Nissa Azar RDCS Procedure CPT: Indications: possible TIA Cardiac Hx: Technical Quality: Fair Contrast 1: Agitated Saline Total Dose (mL): 2 Contrast 2: Total Dose (mL): MEASUREMENTS (Male / Female) Normal Values 2D ECHO LVOT Diameter 2.0 cm LV Diastolic Volume MOD BP 124.1 cm??? 67 - 155 / 56 - 104 cm??? LV Systolic Volume MOD BP 51.7 cm??? 22 - 58 / 19 - 49 cm??? LV Ejection Fraction MOD BP 58.3 % >= 55 % LV Cardiac Index MOD BP 2379.6 cm???/min???m??? LV Diastolic Volume MOD 4C 141.3 cm??? LV Systolic Volume MOD 4C 62.6 cm??? LV Ejection Fraction MOD 4C 55.7 % LV Cardiac Index MOD 4C 2589.1 cm???/min???m??? LV Diastolic Length 4C 8.9 cm LV Systolic Length 4C 7.8 cm LV Diastolic Volume MOD 2C 102.0 cm??? LV Systolic Volume MOD 2C 41.8 cm??? LV Ejection Fraction MOD 2C 59.0 % LV Cardiac Index MOD 2C 1980.1 cm???/min???m??? LV Diastolic Length 2C 8.3 cm LV Systolic Length 2C 7.7 cm LA Volume 46.0 cm??? 18 - 58 / 22 - 52 cm??? LA Volume Index 18.7 cm???/m??? 16 - 28 cm???/m??? DOPPLER AV Peak Velocity 224.2 cm/s AV Peak Gradient 20.1 mmHg AV Mean Velocity 157.9 cm/s AV Mean Gradient 11.4 mmHg AV Velocity Time Integral 43.0 cm LVOT Peak Velocity 111.4 cm/s LVOT Peak Gradient 5.0 mmHg LVOT Velocity Time Integral 20.3 cm LVOT Stroke Volume 64.3 cm??? LVOT Stroke Volume Index 27.2 ml/m??? LVOT Cardiac Index 2114.5 cm???/min???m??? AV Area Cont Eq vti 1.5 cm??? AV Area Cont Eq pk 1.6 cm??? MV Peak Velocity 104.5 cm/s MV Peak Gradient 4.4 mmHg MV Mean Velocity 72.1 cm/s MV Mean Gradient 2.2 mmHg MV Velocity Time Integral 17.7 cm MV Area PHT 4.0 cm??? Mitral E Point Velocity 58.7 cm/s Mitral A Point Velocity 80.2 cm/s Mitral E to A Ratio 0.7 MV Deceleration Time 191.5 ms FINDINGS Left Ventricle Left ventricular ejection fraction is estimated at 55-60 %. Left ventricular cavity size normal. Left ventricular wall thickness normal. No obvious regional wall motion abnormalities. Right Ventricle Normal right ventricular size and function. Unable to estimate the right ventricular systolic pressure. Right Atrium Normal right atrial size. Negative agitated saline bubble study for right to left shunt. Left Atrium Normal left atrial size. Mitral Valve Structurally normal mitral valve. No evidence for mitral valve prolapse. No mitral stenosis. Trace mitral regurgitation. Aortic Valve Aortic valve not well visualized. Mild aortic insufficiency seen Tricuspid Valve Structurally normal tricuspid valve. No tricuspid stenosis, regurgitation or prolapse. Pulmonic Valve Pulmonic valve not well visualized. Pericardium No pericardial effusion. Aorta Aortic annulus normal. CONCLUSIONS Normal biventricular systolic function. Poorly visualized aortic valve. History of aortic valve replacement with mechanical valve. The aortic valve is extremely thickened and the leaflets were poorly visualized. The mean gradient across the valve was 11 mmHg. mild to moderate aortic insufficiency was identified. No pericardial effusion Previewed by: Dr. Ollie Willams MD (Electronically Signed) Final Date: 19 February 2024 12:46
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
[2024-02-19 15:20] LABS: Chol/HDL Ratio 5.79 Ratio; LDL Cholesterol,Calculated 126.5 mg/dL (0.0-131.0)
[2024-02-19] MEDS ORDERED: WARFARIN 10 MG TAB PO SCH (20:00)
--- NOTE | 2024-02-20 01:02 | P.PN ---
Subjective Progress Note Date: 02/19/24 Patient was seen for follow-up. Patient is sitting comfortably recliner. Patient's was also present. No new concerns. No confusional episodes. Patient today mentions that he does binge drink alcohol. He does it about once a week, and does 6-7 beers with his binge. The same thing he did on Thursday and then he had this episode on Thursday, when he was hospitalized. Objective - Vital Signs Vital signs: Vital Signs Temp 98 F 02/19/24 08:00 Pulse 81 02/19/24 08:00 Resp 16 02/19/24 08:00 BP 152/79 02/19/24 08:00 Pulse Ox 96 02/19/24 08:00 FiO2 Intake & Output 02/18/24 02/19/24 02/19/24 18:59 06:59 18:59 Intake Total 728 20 10 Balance 728 20 10 Weight 115.7 kg Intake: IV 10 20 10 Invasive Line 2 10 20 10 Oral 718 0 Other: Voiding Method Toilet Toilet # Voids 2 1 - Exam Normal. Mentation normal. - Labs CBC & Chem 7: 02/19/24 06:29 02/19/24 06:29 Labs: Abnormal Lab Results - Last 24 Hours (Table) 02/18/24 02/18/24 02/19/24 Range/Units 16:25 20:12 05:58 PT (10.0-12.5) sec INR (<1.2) Sodium (137-145) mmol/L Glucose (74-99) mg/dL POC Glucose (mg/dL) 120 H 142 H 143 H (70-110) mg/dL Hemoglobin A1c (<=6.0) % 02/19/24 02/19/24 02/19/24 Range/Units 06:29 06:29 06:29 PT 16.2 H (10.0-12.5) sec INR 1.6 H (<1.2) Sodium 134 L (137-145) mmol/L Glucose 125 H (74-99) mg/dL POC Glucose (mg/dL) (70-110) mg/dL Hemoglobin A1c 6.9 H (<=6.0) % 02/19/24 Range/Units 11:34 PT (10.0-12.5) sec INR (<1.2) Sodium (137-145) mmol/L Glucose (74-99) mg/dL POC Glucose (mg/dL) 133 H (70-110) mg/dL Hemoglobin A1c (<=6.0) % Assessment and Plan Assessment: * Acute confusional state, with mental confusion, racing thoughts, dizziness, without any lateralizing symptoms of unclear cause. The symptoms persisted intensely for 6 hours, and then slowly resolved in the next 3 hours. Exact cause is uncertain. Differential between TIA, seizure versus reaction from binge drinking of alcohol the day prior to arrival. Patient's blood sugar was checked before he went to work and was normal, therefore doubt hypoglycemia. * Diabetes * History of aortic stenosis, status post mechanical aortic valve replacement * Hypertension * Hyperlipidemia * Alcoholism * History of traumatic brain injury in , with possible left parietal lobe encephalomalacia. Plan: * CTA head and neck revealed no evidence of dissection of the cervical internal carotid arteries or vertebral arteries. No evidence of significant stenosis at the carotid bifurcations. No evidence of intracranial high-grade stenosis or intracranial aneurysm. Diminutive intracranial portion of the left vertebral artery. * MRI of the brain revealed no evidence of acute/subacute infarct. Remote ischemic injury to the left parietal occipital watershed region. Nonspecific white matter changes, likely related to small vessel ischemic disease. I personally reviewed MRI agree with the findings. * EEG was performed, which was mildly abnormal due to intermittent focal theta slowing in the left temporal region. This may suggest underlying focal cortical neuronal dysfunction. However no epileptiform activity was seen. * Patient's symptoms are of unclear cause. MRI of the brain ruled out acute stroke. EEG also did not reveal any obvious epileptiform activity. Patient does have a history of mechanical aortic valve, on Coumadin, and he used to have target INR between 2-3, however since October, the target INR was changed to 1-2. Patient started having neurological symptoms since last 1 month. * Cardiology team at this hospital recommending target INR between 1.5-2.0. Patient's INR has been in this therapeutic range. Consider resuming target INR between 2-3, but will defer to cardiology. Cardiology do not recommend ABRAN. * As cardiology do not believe these episodes are TIA, therefore we will empirically keep patient on Keppra at least for 30 days. Patient probably may need prolonged EEG testing. Strongly recommend patient to abstain from alcoholism, especially given being on Coumadin. 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 May need ABRAN. * Also recommend patient follow-up with neurologist outpatient. * 2D echo revealed LVEF 55 to 60%. Left ventricular cavity size is normal. No obvious regional wall motion abnormalities. Normal biatrial. Negative agitated saline bubble study for [id number] shunt. The aortic valve is extremely thickened and the leaflets were poorly visualized. The mean gradie nt across the valve is 11 mmHg. Discussed with cardiology, they are not concerned about this finding, wants to maintain INR as above, and do not recommend ABRAN. * Hemoglobin A1c 6.9, diabetes well-controlled * Fasting lipid panel with cholesterol 217, LDL 126, HDL 37 triglycerides 265. Recommend high intensity statins, to target LDL <70. * Patient on Coumadin, INR for 1.6. * Strongly recommend abstinence from alcoholism. * Discussed with primary team in detail regarding above recommendations.
== END 2024-02-19 15:26 | disposition home or self-care (01) ==
LOC: EC 15:16 → 3SCARD 20:21
PROVIDERS: ADMIT Hospitalist; ATTEND Hospitalist
DX: R41.0 Disorientation, unspecified (principal); R42 Dizziness and giddiness; G93.89 Other specified disorders of brain; F10.20 Alcohol dependence, uncomplicated; I45.10 Unspecified right bundle-branch block; I35.0 Nonrheumatic aortic (valve) stenosis; I10 Essential (primary) hypertension; E11.9 Type 2 diabetes mellitus without complications; E78.5 Hyperlipidemia, unspecified; Z95.2 Presence of prosthetic heart valve; Z79.01 Long term (current) use of anticoagulants; Z79.84 Long term (current) use of oral hypoglycemic drugs; Z79.85 Long-term (current) use of injectable non-insulin antidiabetic drugs; Z87.820 Personal history of traumatic brain injury; Z79.899 Other long term (current) drug therapy; Z20.822 Contact with and (suspected) exposure to COVID-19
CPT/HCPCS: 99285; 36415; 95816; 93005; 93306; 80061; 80053; 80048 ×2; 82550; 84484; 85025 ×2; 85027; 85610 ×3; 85730; 81003; 80306; 83036; 71046; 70496; 70450; 70498; 70551; G0378 ×3; Q9967

== ENCOUNTER 2024-07-01 03:50 | Observation (INO) | payer OTHER ==
[2024-07-01 04:42] LABS: Basophils % (A) 0 %; Eosinophils # (A) 0.1 k/uL (0-0.7); Eosinophils % (A) 1 %; HCT 41.4 % (39.0-53.0); HGB 14.1 gm/dL (13.0-17.5); Lymphocytes % (A) 9 %; MCH 28.2 pg (25.0-35.0); MCHC 34.1 g/dL (31.0-37.0); MCV 82.7 fL (80.0-100.0); Mean Platelet Volume 7.2; Monocytes # (A) 0.7 k/uL (0-1.0); Monocytes % (A) 6 %; Neutrophils # (A) 8.5 k/uL (1.3-7.7); Neutrophils % (A) 81 %; Platelet Count 183 k/uL (150-450); RBC 5.01 m/uL (4.30-5.90); RDW 13.3 % (11.5-15.5); WBC 10.5 k/uL (3.8-10.6)
[2024-07-01] MEDS: SODIUM CHLORIDE 0.9% 1,000 ML IV STA (04:44)
[2024-07-01] MEDS: ASPIRIN 81 MG PO STA (04:46)
[2024-07-01 04:54] LABS: INR 1.5 (<1.2); Partial Thromboplastin Time 29.9 sec (22.0-30.0); Prothrombin Time 16.1 sec (10.0-12.5)
[2024-07-01 04:57] LABS: ALT 54 U/L (4-49); AST 34 U/L (17-59); African American GFR (CKD) >90 (>60 ml/min/1.73 sqM); Albumin 3.7 g/dL (3.5-5.0); Alkaline Phosphatase 69 U/L (38-126); Anion Gap 9 mmol/L; Blood Urea Nitrogen 15 mg/dL (9-20); Calcium 8.5 mg/dL (8.4-10.2); Carbon Dioxide 26 mmol/L (22-30); Chloride 93 mmol/L (98-107); Glucose 140 mg/dL (74-99); Magnesium 1.6 mg/dL (1.6-2.3); Non-African American GFR(CKD) >90 (>60 ml/min/1.73 sqM); Potassium 3.8 mmol/L (3.5-5.1); Sodium 128 mmol/L (137-145); Total Bilirubin 1.1 mg/dL (0.2-1.3); Total Protein 6.2 g/dL (6.3-8.2)
[2024-07-01 06:25] LABS: Influenza A Not Detected (Not Detectd); Influenza B Not Detected (Not Detectd); RSV Not Detected (Not Detectd)
--- NOTE | 2024-07-01 06:57 | ED ---
Arrhythmia/Palpitations HPI - General Chief Complaint: Arrhythmia/Palpitations Stated Complaint: chest pain Time Seen by Provider: 07/01/24 03:59 Source: patient Mode of arrival: wheelchair Limitations: no limitations - History of Present Illness Initial Comments: This patient is a 53-year-old man who presents with complaint that he is not feeling well and his heart has been racing since Thursday. The patient reports that he had a few drinks on Thursday, and then when he awoke on Thursday he was feeling somewhat fatigued, rundown, and his heart was racing. The patient did see his primary physician on Thursday, and they thought that he may have had norovirus. The patient states that he did have some nausea vomiting but that has resolved. Currently he has some chest pain in the substernal area. His heart has been beating at 110 to 120 bpm. He has not had diaphoresis, dyspnea. Does have history of mechanical valve and has been taking his Coumadin. MD Complaint: "heart racing" Onset/Timin -: days(s) Context: occurred during rest Associated Symptoms: chest pain, nausea/vomiting - Related Data Home Medications Medication Instructions Recorded Confirmed Empagliflozin [Jardiance] 25 mg PO DAILY 02/17/24 07/01/24 Semaglutide [Ozempic] 1 mg SQ MO 02/17/24 07/01/24 Spironolactone 12.5 mg PO DAILY 02/17/24 07/01/24 Warfarin [Coumadin] 7.5 mg PO SUTUTHSA@199902/17/24 07/01/24 Warfarin [Coumadin] 10 mg PO MOWEFR@199902/17/24 07/01/24 metFORMIN HCL 1,000 mg PO BID 02/17/24 07/01/24 busPIRone HCL [Buspar] 7.5 mg PO BID 07/01/24 07/01/24 Previous Rx's Medication Instructions Recorded Metoprolol Succinate (ER) [Toprol 50 mg PO DAILY 30 Days #30 tab 07/02/24 XL] Pantoprazole Sodium [Protonix] 40 mg PO DAILY 30 Days #30 tab 07/02/24 Allergies Allergy/AdvReac Type Severity Reaction Status Date / Time No Known Allergies Allergy Verified 07/01/24 09:17 Review of Systems ROS Statement: Those systems with pertinent positive or pertinent negative responses have been documented in the HPI. ROS Other: All systems not noted in ROS Statement are negative. Constitutional: Reports: weakness. Denies: fever, chills Respiratory: Denies: cough, dyspnea, wheezes Cardiovascular: Reports: chest pain, palpitations. Denies: orthopnea, edema, syncope Gastrointestinal: Reports: nausea, diarrhea. Denies: abdominal pain, vomiting, constipation, melena, hematochezia Genitourinary: Denies: dysuria, hematuria Musculoskeletal: Denies: back pain Skin: Denies: rash Neurological: Denies: headache, weakness, numbness Psychiatric: Reports: anxiety Past Medical History Past Medical History: Diabetes Mellitus, Hypertension Additional Past Medical History / Comment(s): aortic stenosis History of Any Multi-Drug Resistant Organisms: None Reported Past Surgical History: Cardiac Valve Replacement, Cholecystectomy, Coronary Bypass/CABG, Orthopedic Surgery Past Psychological History: No Psychological Hx Reported Smoking Status: Never smoker Past Alcohol Use History: Occasional Past Drug Use History: None Reported General Exam Limitations: no limitations General appearance: alert, in no apparent distress Head exam: Present: atraumatic, normocephalic Eye exam: Present: normal appearance. Absent: scleral icterus, conjunctival injection ENT exam: Present: normal oropharynx Neck exam: Present: normal inspection Respiratory exam: Present: normal lung sounds bilaterally. Absent: respiratory distress, wheezes, rales, rhonchi, stridor, accessory muscle use Cardiovascular Exam: Present: normal rhythm, tachycardia, systolic murmur, clicks. Absent: diastolic murmur, rubs, gallop GI/Abdominal exam: Present: soft. Absent: distended, tenderness, guarding, rebound, rigid, mass Extremities exam: Present: normal inspection, normal capillary refill. Absent: pedal edema, calf tenderness Back exam: Present: normal inspection. Absent: CVA tenderness (R), CVA tenderness (L) Neurological exam: Present: alert Skin exam: Present: warm, dry, intact, normal color. Absent: rash Course Vital Signs 07/01/24 07/01/24 07/01/24 03:52 04:15 05:00 Temperature 98.3 F 98.4 F Pulse Rate 113 H 105 H 108 H Pulse Rate [ Towel Hemmer ] Respiratory 18 20 Rate Blood Pressure 145/86 132/86 128/74 Blood Pressure [Left Arm] O2 Sat by Pulse 94 L 97 94 L Oximetry 07/01/24 07/01/24 07/01/24 06:00 06:33 08:00 Temperature 98.1 F Pulse Rate 110 H 103 H 97 Pulse Rate [ Towel Hemmer ] Respiratory 20 17 Rate Blood Pressure 115/69 125/85 126/68 Blood Pressure [Left Arm] O2 Sat by Pulse 95 95 97 Oximetry 07/01/24 07/01/24 07/01/24 11:00 12:23 14:17 Temperature Pulse Rate 98 92 101 H Pulse Rate [ Towel Hemmer ] Respiratory 17 16 16 Rate Blood Pressure 120/72 122/78 118/70 Blood Pressure [Left Arm] O2 Sat by Pulse 99 96 100 Oximetry 07/01/24 15:00 Temperature 97.9 F Pulse Rate Pulse Rate [ 97 Towel Hemmer ] Respiratory 15 Rate Blood Pressure Blood Pressure 144/79 [Left Arm] O2 Sat by Pulse 97 Oximetry EKG Findings - EKG Results: EKG: interpreted by ERMD, sinus rhythm (With occasional premature supraventricular complexes) EKG shows: tachycardia (Rate 112 bpm) - Blocks, [place], Hypertrophy, ST Abn: AV and intraventricular conduction: right bundle branch block (fixed/intermittent, complete/incomplete), left anterior fascicular block Medical Decision Making - Medical Decision Making The patient had chest x-ray that I interpreted as negative for acute infiltrate, pneumothorax, congestive heart failure Was pt. sent in by a medical professional or institution (RENNY Vilchis, ROUTE CLERK, urgent care, hospital, or [place] health care facility...) When possible be specific @ -[No] Did you speak to anyone other than the patient for history (EMS, parent, family, police, friend...)? What history was obtained from this source @ -[No] Did you review nursing and triage notes (agree or disagree)? Why? @ -[I reviewed and agree with nursing and triage notes] Were old charts reviewed (outside hosp., previous admission, EMS record, old EKG, old radiological studies, urgent care reports/EKG's, [place] health care facility records)? Report findings @ -[No old charts were reviewed] Differential Diagnosis (chest pain, altered mental status, abdominal pain women, abdominal pain men, vaginal bleeding, weakness, fever, dyspnea, syncope, headache, dizziness, GI bleed, back pain, seizure, CVA, palpatations, mental health, musculoskeletal)? @ -[Differential Chest Pain: Stable Angina, Unstable Angina, STEMI, NSTEMI Aortic Dissection, Pneumothorax, Musculoskeletal, Esophageal Spasm GERD, Cholecystitis, Pancreatitis, Zoster, this is not meant to be an all-inclusive list. EKG interpreted by me (3pts min.). @ -[I interpreted as above] X-rays interpreted by me (1pt min.). @ -[I interpreted as above CT interpreted by me (1pt min.). @ -[None done] U/S interpreted by me (1pt. min.). @ -[None done] What testing was considered but not performed or refused? (CT, X-rays, U/S, labs)? Why? @ -[None] What meds were considered but not given or refused? Why? @ -[None] Did you discuss the management of the patient with other professionals (professionals i.e. , PA, ROUTE CLERK, lab, RT, psych nurse, social work manager, physical therapy aid, teacher, collections officer, correctional counselor/case manager)? Give summary @ -[Case discussed with admitting physician and treatment recommendations incorporated Was smoking cessation discussed for >3mins.? @ -[No] Was critical care preformed (if so, how long)? @ -[No] Were there social determinants of health that impacted care today? How? (Homelessness, low income, unemployed, alcoholism, drug addiction, transportation, low edu. Level, literacy, decrease access to med. care, senior living, rehab)? @ -[No] Was there de-escalation of care discussed even if they declined (Discuss DNR or withdrawal of care, Hospice)? DNR status @ -[No] What co-morbidities impacted this encounter? (DM, HTN, Smoking, COPD, CAD, Cancer, CVA, ARF, Chemo, Hep., AIDS, mental health diagnosis, sleep apnea, morbid obesity)? @ -[History of heart valve replacement Was patient admitted / discharged? Hospital course, mention meds given and route, prescriptions, significant lab abnormalities, going to OR and other pertinent info. @ -[This patient is a 53-year-old man who presents to have evaluation for chest discomfort and persistent tachycardia. The patient's workup does reveal some mild hyponatremia. Given the patient's upper abdominal symptoms and tachycardia he is admitted to ensure that there is not an atypical cardiac presentation. He does appear stable at admission. Undiagnosed new problem with uncertain prognosis? @ -[No] Drug Therapy requiring intensive monitoring for toxicity (Heparin, Nitro, Insulin, Cardizem)? @ -[No] Were any procedures done? @ -[No] Diagnosis/symptom? @ -[Acute chest pain Acute tachycardia Acute hyponatremia Acute, or Chronic, or Acute on Chronic? @ -[Acute Uncomplicated (without systemic symptoms) or Complicated (systemic symptoms)? @ -[Uncomplicated Side effects of treatment? @ -[No] Exacerbation, Progression, or Severe Exacerbation? @ -[No] Poses a threat to life or bodily function? How? (Chest pain, [place], [place], pneumonia, PE, COPD, DKA, ARF, appy, cholecystitis, CVA, Diverticulitis, Homicidal, Suicidal, threat to staff... and all critical care pts) @ -[No] All treatments are based on ideal body weight as in ED triage - Lab Data Result diagrams: 07/02/24 12:50 07/02/24 12:50 Lab Results 07/01/24 07/01/24 07/01/24 Range/Units 04:30 04:30 04:30 WBC 10.5 (3.8-10.6) k/uL RBC 5.01 (4.30-5.90) m/uL Hgb 14.1 (13.0-17.5) gm/dL Hct 41.4 (39.0-53.0) % MCV 82.7 (80.0-100.0) fL MCH 28.2 (25.0-35.0) pg MCHC 34.1 (31.0-37.0) g/dL RDW 13.3 (11.5-15.5) % Plt Count 183 (150-450) k/uL MPV 7.2 Neutrophils % 81 % Lymphocytes % 9 % Monocytes % 6 % Eosinophils % 1 % Basophils % 0 % Neutrophils # 8.5 H (1.3-7.7) k/uL Lymphocytes # 1.0 (1.0-4.8) k/uL Monocytes # 0.7 (0-1.0) k/uL Eosinophils # 0.1 (0-0.7) k/uL Basophils # 0.0 (0-0.2) k/uL PT 16.1 H (10.0-12.5) sec INR 1.5 H (<1.2) APTT 29.9 (22.0-30.0) sec Sodium 128 L (137-145) mmol/L Potassium 3.8 (3.5-5.1) mmol/L Chloride 93 L (98-107) mmol/L Carbon Dioxide 26 (22-30) mmol/L Anion Gap 9 mmol/L BUN 15 (9-20) mg/dL Creatinine 0.69 (0.66-1.25) mg/dL Est GFR (CKD-EPI)AfAm >90 (>60 ml/min/1.73 sqM) Est GFR (CKD-EPI)NonAf >90 (>60 ml/min/1.73 sqM) Glucose 140 H (74-99) mg/dL Calcium 8.5 (8.4-10.2) mg/dL Magnesium 1.6 (1.6-2.3) mg/dL Total Bilirubin 1.1 (0.2-1.3) mg/dL AST 34 (17-59) U/L ALT 54 H (4-49) U/L Alkaline Phosphatase 69 (38-126) U/L Troponin I (0.000-0.034) ng/mL Total Protein 6.2 L (6.3-8.2) g/dL Albumin 3.7 (3.5-5.0) g/dL Amylase (30-110) U/L Lipase (23-300) U/L TSH 2.220 (0.465-4.680) mIU/L Influenza Type A (PCR) (Not Detectd) Influenza Type B (PCR) (Not Detectd) RSV (PCR) (Not Detectd) SARS-CoV-2 (PCR) (Not Detectd) 07/01/24 07/01/24 07/01/24 Range/Units 04:30 04:30 05:06 WBC (3.8-10.6) k/uL RBC (4.30-5.90) m/uL Hgb (13.0-17.5) gm/dL Hct (39.0-53.0) % MCV (80.0-100.0) fL MCH (25.0-35.0) pg MCHC (31.0-37.0) g/dL RDW (11.5-15.5) % Plt Count (150-450) k/uL MPV Neutrophils % % Lymphocytes % % Monocytes % % Eosinophils % % Basophils % % Neutrophils # (1.3-7.7) k/uL Lymphocytes # (1.0-4.8) k/uL Monocytes # (0-1.0) k/uL Eosinophils # (0-0.7) k/uL Basophils # (0-0.2) k/uL PT (10.0-12.5) sec INR (<1.2) APTT (22.0-30.0) sec Sodium (137-145) mmol/L Potassium (3.5-5.1) mmol/L Chloride (98-107) mmol/L Carbon Dioxide (22-30) mmol/L Anion Gap mmol/L BUN (9-20) mg/dL Creatinine (0.66-1.25) mg/dL Est GFR (CKD-EPI)AfAm (>60 ml/min/1.73 sqM) Est GFR (CKD-EPI)NonAf (>60 ml/min/1.73 sqM) Glucose (74-99) mg/dL Calcium (8.4-10.2) mg/dL Magnesium (1.6-2.3) mg/dL Total Bilirubin (0.2-1.3) mg/dL AST (17-59) U/L ALT (4-49) U/L Alkaline Phosphatase (38-126) U/L Troponin I <0.012 (0.000-0.034) ng/mL Total Protein (6.3-8.2) g/dL Albumin (3.5-5.0) g/dL Amylase 82 (30-110) U/L Lipase 215 (23-300) U/L TSH (0.465-4.680) mIU/L Influenza Type A (PCR) Not Detected (Not Detectd) Influenza Type B (PCR) Not Detected (Not Detectd) RSV (PCR) Not Detected (Not Detectd) SARS-CoV-2 (PCR) Not Detected (Not Detectd) Disposition Clinical Impression: Chest pain, Tachycardia, Hyponatremia Disposition: ADMITTED IP TO THIS HOSP Condition: Fair Is patient prescribed a controlled substance at d/c from ED?: No
--- NOTE | 2024-07-01 07:06 | XR ---
EXAMINATION TYPE: XR chest 2V DATE OF EXAM: 07/01/2024 5:48 AM COMPARISON: Chest radiographs from 02/17/2024 TECHNIQUE: XR chest 2V Frontal and lateral views of the chest. CLINICAL INDICATION:Male, 53 years old with history of dysrhythmia; FINDINGS: Lungs/Pleura: There is no evidence of pleural effusion, focal consolidation, or pneumothorax. Pulmonary vascularity: Unremarkable. Heart/mediastinum: Cardiomediastinal silhouette is stable. Cardiac valvular prosthesis. Musculoskeletal: Multiple level degenerative disc disease changes seen throughout the spine. DISH of the thoracic spine. Midline sternotomy wires are noted and stable. IMPRESSION: No acute cardiopulmonary disease/process. [facility], , 07/01/2024 7:04 AM
[2024-07-01] MEDS ORDERED: NITROGLYCERIN SL TABS 0.4 MG TAB SUBLINGUAL PRN (07:39)
[2024-07-01] MEDS: FAMOTIDINE 20 MG/2 ML VIAL IV STA (08:26)
[2024-07-01] MEDS ORDERED: METOPROLOL SUCCINATE (ER) 25 MG TAB.ER.24H PO SCH (10:45)
--- NOTE | 2024-07-01 10:48 | P.CRDCN ---
History of Present Illness History of present illness: HISTORY OF PRESENT ILLNESS: This is a 53-year-old male with a past medical history significant for diabetes, hypertension, and bicuspid aortic valve with mechanical aortic valve replacement with On-X valve 2 years ago at [facility]. Patient follows with Dr. Surinder Uribe at [facility]. We have been asked to see the patient in consultation for chest pain. Patient examined at the bedside in the emergency room. Patient states starting on Thursday he was nauseous and having episodes of vomiting. He states that he felt so weak that he could not get out of bed and states that his head hurt. He denied having any chest pain or pressure. He denies any shortness of breath. He states that he has been checking his heart rate and has been above 100 at home. DIAGNOSTICS: - EKG reveals sinus tachycardia with right bundle branch block. - Chest xray negative for acute process - Laboratory data: WBC 10.5. Hemoglobin 14.1. Platelet count 183. INR 1.9. Sodium 128. Potassium 3.8. BUN 15. Creatinine 0.69. Troponin negative x 2. TSH 2.220. - Current home cardiac medications include warfarin 10 mg Thursday and 7.5 mg Thursday and Thursday, Aldactone 12.5 mg daily, and metoprolol succinate 25 mg daily. - Most recent echocardiogram obtained in February 2024 revealing ejection fraction 55 to 60%, negative bubble study, aortic valve extremely thickened and leaflets were poorly visualized. Mean gradient across the valve was 11 mmHg. Mild to moderate aortic insufficiency was identified. REVIEW OF SYSTEMS: At the time of my exam: CONSTITUTIONAL: Denies fever or chills. HEENT: Denies blurred vision, vision changes, or eye pain. Denies hemoptysis CARDIOVASCULAR: Denies chest pain. Denies orthopnea. Denies PND. Denies palpitations RESPIRATORY: Denies shortness of breath. GASTROINTESTINAL: Denies abdominal pain. Denies nausea or vomiting. HEMATOLOGIC: Denies bleeding disorders. GENITOURINARY: Denies any blood in urine. SKIN: Denies pruitis. Denies rash. PHYSICAL EXAM: VITAL SIGNS: Reviewed. GENERAL: Well-developed in no acute distress. HEENT: Head is normocephalic. Pupils are equal, round. Sclerae anicteric. Mucous membranes of the mouth are moist. Neck supple. No JVD or thyromegaly LUNGS: Respirations even and unlabored. Lungs essentially clear to auscultation bilaterally. HEART: Regular rate and rhythm. S1 and S2 heard. Systolic murmur noted. Mechanical click auscultated. ABDOMEN: Soft. Nondistended. Nontender. EXTREMITIES: Normal range of motion. No clubbing or cyanosis. Peripheral pulses intact. No lower extremity edema NEUROLOGIC: Awake and alert. Oriented x 3. ASSESSMENT: Chest pain, ruled out, patient denies chest pain or pressure Sinus tachycardia Nausea and vomiting, likely secondary to viral infection History of bicuspid aortic valve with On-X mechanical aortic valve, 2 years ago at [facility] Frequent alcohol use Hypertension Diabetes PLAN: No need to repeat echocardiogram as this was performed in February 2024 Resume home cardiac medications Increase metoprolol succinate to 50 mg daily Patient with On-X mechanical aortic valve. Acceptable INR range 1.5-2. Continue Coumadin Give 500 cc fluid bolus Further recommendations pending patient course Nurse practitioner note has been reviewed by physician. Signing provider agrees with the documented findings, assessment, and plan of care documented by RADIOLOGY TRANSCRIPTIONIST as a scribe. Past Medical History Past Medical History: Diabetes Mellitus, Hypertension Additional Past Medical History / Comment(s): aortic stenosis History of Any Multi-Drug Resistant Organisms: None Reported Past Surgical History: Cardiac Valve Replacement, Cholecystectomy, Coronary Bypass/CABG, Orthopedic Surgery Past Psychological History: No Psychological Hx Reported Smoking Status: Never smoker Past Alcohol Use History: Occasional Past Drug Use History: None Reported Medications and Allergies Home Medications Medication Instructions Recorded Confirmed Type Empagliflozin [Jardiance] 25 mg PO DAILY 02/17/24 07/01/24 History Metoprolol Succinate (ER) [Toprol 25 mg PO DAILY 02/17/24 07/01/24 History XL] Semaglutide [Ozempic] 1 mg SQ MO 02/17/24 07/01/24 History Spironolactone 12.5 mg PO DAILY 02/17/24 07/01/24 History Warfarin [Coumadin] 7.5 mg PO SUTUTHSA@199902/17/24 07/01/24 History Warfarin [Coumadin] 10 mg PO MOWEFR@199902/17/24 07/01/24 History metFORMIN HCL 1,000 mg PO BID 02/17/24 07/01/24 History busPIRone HCL [Buspar] 7.5 mg PO BID 07/01/24 07/01/24 History Allergies Allergy/AdvReac Type Severity Reaction Status Date / Time No Known Allergies Allergy Verified 07/01/24 09:17 Physical Exam Vitals: Vital Signs Temp Pulse Resp BP Pulse Ox 07/01/24 08:00 97 17 126/68 97 07/01/24 06:33 98.1 F 103 H 20 125/85 95 07/01/24 06:00 110 H 115/69 95 07/01/24 05:00 108 H 128/74 94 L 07/01/24 04:15 98.4 F 105 H 20 132/86 97 07/01/24 03:52 98.3 F 113 H 18 145/86 94 L Intake and Output 06/30/24 07/01/24 07/01/24 22:59 06:59 14:59 Other: Weight 111.13 kg Results 07/01/24 04:30 07/01/24 04:30 Cardiac Enzymes 07/01/24 07/01/24 07/01/24 Range/Units 04:30 04:30 07:49 AST 34 (17-59) U/L Troponin I <0.012 <0.012 (0.000-0.034) ng/mL Coagulation 07/01/24 Range/Units 04:30 PT 16.1 H (10.0-12.5) sec APTT 29.9 (22.0-30.0) sec CBC 07/01/24 Range/Units 04:30 WBC 10.5 (3.8-10.6) k/uL RBC 5.01 (4.30-5.90) m/uL Hgb 14.1 (13.0-17.5) gm/dL Hct 41.4 (39.0-53.0) % Plt Count 183 (150-450) k/uL Comprehensive Metabolic Panel 07/01/24 Range/Units 04:30 Sodium 128 L (137-145) mmol/L Potassium 3.8 (3.5-5.1) mmol/L Chloride 93 L (98-107) mmol/L Carbon Dioxide 26 (22-30) mmol/L BUN 15 (9-20) mg/dL Creatinine 0.69 (0.66-1.25) mg/dL Glucose 140 H (74-99) mg/dL Calcium 8.5 (8.4-10.2) mg/dL AST 34 (17-59) U/L ALT 54 H (4-49) U/L Alkaline Phosphatase 69 (38-126) U/L Total Protein 6.2 L (6.3-8.2) g/dL Albumin 3.7 (3.5-5.0) g/dL Current Medications Generic Name Dose Route Start Last Admin Trade Name Freq PRN Reason Stop Dose Admin Sodium Chloride 500 mls @ 999 mls/hr 07/01/24 10:39 Saline 0.9% IV 07/01/24 11:09 .Q31M ONE Metoprolol Succinate 50 mg 07/01/24 10:45 Metoprolol Succinate (Er) 25 Mg Tab.Er.24h PO DAILY [facility] Nitroglycerin 0.4 mg 07/01/24 07:39 Nitroglycerin Sl Tabs 0.4 Mg Tab SUBLINGUAL Q5M PRN Chest Pain Spironolactone 12.5 mg 07/01/24 10:45 Spironolactone 25 Mg Tab PO DAILY [facility] Warfarin Sodium 10 mg 07/01/24 20:00 Warfarin 5 Mg Tab PO MOWEFR@1999 [facility] Protocol Warfarin Sodium 7.5 mg 07/02/24 20:00 Warfarin 5 Mg Tab PO SUTUTHSA@1999 [facility] Protocol Intake and Output 06/30/24 07/01/24 07/01/24 22:59 06:59 14:59 Other: Weight 111.13 kg 07/01/24 04:30 07/01/24 04:30
[2024-07-01] MEDS: SODIUM CHLORIDE 0.9% 500 ML 500 ML IV ONE (11:17)
[2024-07-01] MEDS: SPIRONOLACTONE 25 MG TAB PO SCH (11:17)
[2024-07-01] MEDS: METOPROLOL SUCCINATE (ER) 50 MG TAB.ER.24H PO SCH (11:17)
[2024-07-01] MEDS ORDERED: IOPAMIDOL CONTRAST (ORAL USE) VIAL PO PRN (12:28)
[2024-07-01] MEDS ORDERED: DEXTROSE 50% SYRINGE 50 ML IVP PRN ×2 (12:29)
[2024-07-01 12:38] LABS: Glucose,Whole Blood 86 mg/dL (70-110)
[2024-07-01] MEDS: INSULIN LISPRO (HumaLOG) 100 UNIT/ML 10 mL VL SQ SCH (12:54)
[2024-07-01] MEDS: PANTOPRAZOLE 40 MG/10 ML VIAL IVP SCH (13:14)
--- NOTE | 2024-07-01 14:08 | CT ---
EXAMINATION TYPE: CT abdomen w con DATE OF EXAM: 07/01/2024 1:57 PM COMPARISON: None CLINICAL INDICATION: Male, 53 years old with history of abdominal pain, upper epigastric; Epigastric abdominal pain. TECHNIQUE: Axial CT abdomen w con;Sagittal and coronal reformats were created on a separate workstat ion. Contrast used:100ml mL of Isovue 300 with IV Contrast, (none if empty) Oral contrast used: with Oral Contrast (none if empty) CT DLP: 1815.4 mGycm, Automated exposure control for dose reduction was used. FINDINGS: LOWER CHEST: Unremarkable ABDOMEN LIVER: Diffusely hypoattenuating parenchyma. GALLBLADDER AND BILE DUCTS: The gallbladder is surgically absent. PANCREAS: Unremarkable. SPLEEN: Slightly enlarged measuring up to 14.5 cm. Calcified granuloma noted.e ADRENAL GLANDS: Unremarkable. KIDNEYS AND URETERS: Left renal cyst measuring 45 mm with layering higher density. Bilateral nonobstr ucting 3 mm renal calculi.r additional smaller left renal cortical cyst measuring 14 mm. ABDOMEN & PELVIS STOMACH AND BOWEL: No evidence of bowel obstruction. The appendix is normal. PERITONEUM/RETROPERITONEUM: No evidence of pneumoperitoneum or free fluid. VASCULATURE: No evidence of aortic aneurysm. MUSCULOSKELETAL: No acute osseous abnormalities LYMPH NODES: No gross evidence for lymphadenopathy. SOFT TISSUE/ABDOMINAL WALL: Unremarkable IMPRESSION: 1. No evidence for acute process. 2. Bilateral nonobstructing renal calculi. 3. Left renal cyst with layering high density. Is closely approaches the left ureter and left kidney unclear where this originates from. Consider MRI renal mass protocol for further evaluation. 4. Mild splenomegaly. 5. Hepatic steatosis. [facility], , 07/01/2024 2:06 PM
--- NOTE | 2024-07-01 15:12 | P.HPIM ---
History of Present Illness H&P Date: 07/01/24 This is a pleasant 53-year-old male who presented to the emergency department with feelings of palpitations and not feeling well that has been ongoing since Thursday. Patient apparently did go to his primary care provider Dr. Olmos on Thursday and was told he may have norovirus. Other virology testing including RSV, COVID, influenza have all been negative and patient reports to having severe nausea with no vomiting and denies any diarrhea. Patient reports he drank around 6 beers the night before and woke up feeling this way. Patient reports this is not excessive for him and he does not do this daily. Patient denies any history of pancreatitis although was noted to be tender in the upper epigastric mid abdomen region. Patient reports he has a past medical history of diabetes mellitus, hypertension, aortic stenosis with a previous cardiac valve replacement and coronary bypass grafting, denies smoking or illicit drug use and as mentioned previously drinks on occasion. Chest x-ray shows no acute cardiopulmonary process. Labs reviewed show a white blood count of 10.5, hemoglobin 14.1, platelets 183, INR 1.5, sodium 128, potassium 3.8, BUN 15, creatinine 0.69, glucose 140, AST 34, ALT 54, troponins x 3 have been negative, TSH 2.22, virology testing including COVID, influenza, RSV are all negative. Patient was admitted under observation with cardiology to evaluate given his feelings of palpitations. REVIEW OF SYSTEMS: CONSTITUTIONAL: Patient reports fever on Thursday, no malaise, reports of mild fatigue. HEENT: No recent visual problems or hearing problems. Denied any sore throat. CARDIOVASCULAR: Reports of chest pain that has resolved, orthopnea, PND, reports palpitations intermittent, no syncope. PULMONARY: No shortness of breath, no cough, no hemoptysis. GASTROINTESTINAL: No diarrhea, reports of nausea that has subsided, no vomiting, reports of diffuse abdominal pain. NEUROLOGICAL: No headaches, no weakness, no numbness. HEMATOLOGICAL: Denies any bleeding or petechiae. GENITOURINARY: Denies any burning micturition, frequency, or urgency. MUSCULOSKELETAL/RHEUMATOLOGICAL: Denies any joint pain, swelling, or any muscle pain. ENDOCRINE: Denies any polyuria or polydipsia. The rest of the 14-point review of systems is negative. PHYSICAL EXAMINATION: GENERAL: The patient is alert and oriented x3. Well developed, well nourished. Obese HEENT: Pupils are round and equally reacting to light. EOMI. No scleral icterus. No conjunctival pallor. Normocephalic, atraumatic. No pharyngeal erythema. No thyromegaly. CARDIOVASCULAR: S1 and S2 muffled, tachycardic PULMONARY: Diminished breath sounds bilaterally otherwise chest is clear to auscultation, no wheezing or crackles. ABDOMEN: Soft, obese, nontender, nondistended, normoactive bowel sounds. No palpable organomegaly. MUSCULOSKELETAL: No joint swelling or deformity. EXTREMITIES: No cyanosis, clubbing, or pedal edema. NEUROLOGICAL: Gross neurological examination did not reveal any focal deficits. SKIN: No rashes. Assessment: Palpitations with chest pain, ruled out ACS Sinus tachycardia on EKG Diffuse abdominal pain with nausea and vomiting, possible acute gastritis versus something viral as patient was told possible norovirus by primary care provider on Thursday possible concern for acute pancreatitis as patient drank 6 beers and woke up with intense abdominal pain. History of hypertension Diabetes mellitus, type II History of bicuspid aortic valve with On-X mechanical aortic valve follows at the [facility] Frequent alcohol use Obesity with a BMI 33.2 GI prophylaxis, patient is maintained on Coumadin for aortic valve, INR today is 1.5 DVT prophylaxis Full code Plan: Patient was admitted with palpitations and concerns with chest pain which was ruled out per cardiology as patient is no longer having chest pain. Patient continues with palpitations and sinus tachycardia on the monitor Patient did go to his primary care provider Dr. Olmos on Thursday and was told he possibly has norovirus although no testing was done Home medications reviewed and resumed as appropriate Will add sliding scale with Accu-Cheks before meals and at bedtime and adjust ac cordingly. Patient normally only takes oral diabetic agents at home Continue telemetry monitoring as cardiology is increasing the metoprolol Recommend gentle fluids and will also add amylase/lipase and obtain CT abdomen as patient was having severe diffuse abdominal pain in the upper epigastric reg ion Overall prognosis is guarded at this time The impression and plan of care has been dictated by Alicia Peralta, Nurse Practitioner as directed. Dr. Jackie MD I have performed a history and examination and MDM of this patient, discussed the same with the dictator, and agree with the dictator's assessment and plan as written ,documented as a scribe. Based on total visit time, I have performed more than 50% of the visit. Past Medical History Past Medical History: Diabetes Mellitus, Hypertension Additional Past Medical History / Comment(s): aortic stenosis History of Any Multi-Drug Resistant Organisms: None Reported Past Surgical History: Cardiac Valve Replacement, Cholecystectomy, Coronary Bypass/CABG, Orthopedic Surgery Past Psychological History: No Psychological Hx Reported Smoking Status: Never smoker Past Alcohol Use History: Occasional Past Drug Use History: None Reported Medications and Allergies Home Medications Medication Instructions Recorded Confirmed Type Empagliflozin [Jardiance] 25 mg PO DAILY 02/17/24 07/01/24 History Metoprolol Succinate (ER) [Toprol 25 mg PO DAILY 02/17/24 07/01/24 History XL] Semaglutide [Ozempic] 1 mg SQ MO 02/17/24 07/01/24 History Spironolactone 12.5 mg PO DAILY 02/17/24 07/01/24 History Warfarin [Coumadin] 7.5 mg PO SUTUTHSA@199902/17/24 07/01/24 History Warfarin [Coumadin] 10 mg PO MOWEFR@199902/17/24 07/01/24 History metFORMIN HCL 1,000 mg PO BID 02/17/24 07/01/24 History busPIRone HCL [Buspar] 7.5 mg PO BID 07/01/24 07/01/24 History Allergies Allergy/AdvReac Type Severity Reaction Status Date / Time No Known Allergies Allergy Verified 07/01/24 09:17 Physical Exam Vitals: Vital Signs Temp Pulse Resp BP Pulse Ox 07/01/24 08:00 97 17 126/68 97 07/01/24 06:33 98.1 F 103 H 20 125/85 95 07/01/24 06:00 110 H 115/69 95 07/01/24 05:00 108 H 128/74 94 L 07/01/24 04:15 98.4 F 105 H 20 132/86 97 07/01/24 03:52 98.3 F 113 H 18 145/86 94 L Intake and Output 06/30/24 07/01/24 07/01/24 22:59 06:59 14:59 Other: Weight 111.13 kg Results CBC & Chem 7: 07/01/24 04:30 07/01/24 04:30 Labs: Abnormal Lab Results - Last 24 Hours (Table) 07/01/24 07/01/24 07/01/24 Range/Units 04:30 04:30 04:30 Neutrophils # 8.5 H (1.3-7.7) k/uL PT 16.1 H (10.0-12.5) sec INR 1.5 H (<1.2) Sodium 128 L (137-145) mmol/L Chloride 93 L (98-107) mmol/L Glucose 140 H (74-99) mg/dL ALT 54 H (4-49) U/L Total Protein 6.2 L (6.3-8.2) g/dL Assessment and Plan Time with Patient: Greater than 30
[2024-07-01 15:16] LABS: Amylase 82 U/L (30-110); Lipase 215 U/L (23-300)
[2024-07-01] MEDS: ACETAMINOPHEN TAB 325 MG TAB PO PRN (16:58)
[2024-07-01 17:46] LABS: Glucose,Whole Blood 145 mg/dL (70-110)
[2024-07-01] MEDS ORDERED: WARFARIN 7.5 MG TAB PO ONE (18:00)
[2024-07-01 19:29] LABS: Glucose,Whole Blood 223 mg/dL (70-110)
[2024-07-01 20:05] VITALS: RESP 17
[2024-07-01] MEDS: WARFARIN 5 MG TAB PO SCH (22:03)
[2024-07-02 02:01] VITALS: TEMP 99.3
[2024-07-02 05:56] LABS: INR 1.7 (<1.2); Prothrombin Time 17.9 sec (10.0-12.5)
[2024-07-02 06:01] LABS: Glucose,Whole Blood 155 mg/dL (70-110)
[2024-07-02 07:29] VITALS: BP 128/75; PULSE 97
[2024-07-02] MEDS ORDERED: ASPIRIN 325 MG TAB PO SCH (09:00)
[2024-07-02 09:29] LABS: Chol/HDL Ratio 6.82 Ratio
--- NOTE | 2024-07-02 11:34 | P.GSCN ---
History of Present Illness Consult date: 07/02/24 History of present illness: Pleasant 53-year-old gentleman whom I have been asked to see for abdominal pain and an abnormal CT scan of the kidneys. Patient was admitted to the hospital 07/01/2024 for palpitations. The patient has a known mechanical heart valve and does have a history of arrhythmias. He was admitted for further evaluation and treatment of this. The patient was complaining of abdominal pain in particular epigastric pain intermittently since last week. It was real about a week ago and then has been intermittent but decreasing over this past week. The pain is midline, epigastric grade at the base of the sternum. It is crampy. He has never had before. It is unrelated to bowel movements or urination. He does not wish to move much during the crampy discomfort which does not last for an extended period of time. He had an abdominal CAT scan during this admission which identified bilateral small ureteral stones, 3 mm. A medial left renal cyst at 4-1/2 cm. Patient denies blood in the urine. He has never had a symptomatic kidney stone in the past. He was unaware of the stones. He has never had a urine infection. He is also unaware of a kidney cyst. He is comfortable at present. His last real pain was last week. Review of Systems All systems: negative - Constitutional Denies fever, Denies weight loss - EENT Eyes: denies blurred vision Ears, nose, mouth and throat: Denies dysphagia - Cardiovascular Denies chest pain, Denies shortness of breath - Respiratory Denies cough, Denies 7 - Gastrointestinal Reports as per HPI - Genitourinary Denies dysuria, Denies hematuria - Integumentary Denies rash, Denies unusual bruising - Neurological Denies headaches, Denies syncope - Hematologic/Lymphatic Denies easy bleeding, Denies easy bruising Past Medical History Past Medical History: Diabetes Mellitus, Hypertension Additional Past Medical History / Comment(s): aortic stenosis History of Any Multi-Drug Resistant Organisms: None Reported Past Surgical History: Cardiac Valve Replacement, Cholecystectomy, Coronary Bypass/CABG, Orthopedic Surgery Past Psychological History: No Psychological Hx Reported Smoking Status: Never smoker Past Alcohol Use History: Occasional Past Drug Use History: None Reported Medications and Allergies Home Medications Medication Instructions Recorded Confirmed Type Empagliflozin [Jardiance] 25 mg PO DAILY 02/17/24 07/01/24 History Metoprolol Succinate (ER) [Toprol 25 mg PO DAILY 02/17/24 07/01/24 History XL] Semaglutide [Ozempic] 1 mg SQ MO 02/17/24 07/01/24 History Spironolactone 12.5 mg PO DAILY 02/17/24 07/01/24 History Warfarin [Coumadin] 7.5 mg PO SUTUTHSA@199902/17/24 07/01/24 History Warfarin [Coumadin] 10 mg PO MOWEFR@199902/17/24 07/01/24 History metFORMIN HCL 1,000 mg PO BID 02/17/24 07/01/24 History busPIRone HCL [Buspar] 7.5 mg PO BID 07/01/24 07/01/24 History Allergies Allergy/AdvReac Type Severity Reaction Status Date / Time No Known Allergies Allergy Verified 07/01/24 09:17 Surgical - Exam Vital Signs Temp Pulse Resp BP Pulse Ox 98.3 F 113 H 18 145/86 94 L 07/01/24 03:52 07/01/24 03:52 07/01/24 03:52 07/01/24 03:52 07/01/24 03:52 Results - Labs 07/01/24 04:30 07/01/24 04:30 Abnormal Lab Results - Last 24 Hours (Table) 07/01/24 07/01/24 07/02/24 Range/Units 17:45 19:27 05:25 PT (10.0-12.5) sec INR (<1.2) POC Glucose (mg/dL) 145 H 223 H (70-110) mg/dL Hemoglobin A1c 7.3 H (<=6.0) % Triglycerides (0.00-149.00) mg/dL VLDL Cholesterol, Calc (5.00-40.00) mg/dL HDL Cholesterol (40.00-60.00) mg/dL 07/02/24 07/02/24 07/02/24 Range/Units 05:25 05:25 06:00 PT 17.9 H (10.0-12.5) sec INR 1.7 H (<1.2) POC Glucose (mg/dL) 155 H (70-110) mg/dL Hemoglobin A1c (<=6.0) % Triglycerides 290.00 H (0.00-149.00) mg/dL VLDL Cholesterol, Calc 58.00 H (5.00-40.00) mg/dL HDL Cholesterol 22.00 L (40.00-60.00) mg/dL Diabetes panel 07/02/24 07/02/24 Range/Units 05:25 05:25 Hemoglobin A1c 7.3 H (<=6.0) % Triglycerides 290.00 H (0.00-149.00) mg/dL HDL Cholesterol 22.00 L (40.00-60.00) mg/dL - Imaging CT scan - abdomen: report reviewed, image reviewed Assessment and Plan Assessment: Impression: Cardiac arrhythmias. Cardiac valvular disease. Bilateral renal stones, small. left renal cyst, asymptomatic abdominal pain indeterminate etiolo gy probably gastrointestinal Recommendation: The stones are asymptomatic and new to this patient. There is no urinalysis on the chart but most likely they are not infected and they are simple calcium stones. They are nonobstructing. He has a medial left renal cyst that was probably coincidental It is extremely unlikely that the abdominal pain registered has any correlation with the renal stones or cysts. Remotely of one of the tiny stones removed he could have significant colic but most likely the colic would be on the flank or upper quadrants right or left rather than epigastric. Renal cysts as his appears are generally asymptomatic although the medial location is always something to think about. From urologic standpoint he can go home. If the abdominal pain continues and he does not have another reason for I have given him my phone number to contact me for further urologic evaluation with regard to the stone and/or the cyst. Time with Patient: Greater than 30
[2024-07-02] MEDS: SODIUM CHLORIDE 0.9% 1,000 ML IV SCH (11:57)
[2024-07-02 12:10] LABS: Glucose,Whole Blood 199 mg/dL (70-110)
--- NOTE | 2024-07-02 12:13 | P.DS ---
Providers Date of admission: 07/01/24 07:41 Expected date of discharge: 07/02/24 Attending physician: Adriana Taylor MD Consults: 07/01/24 07:39 Consult Physician Routine Consulting Provider: Ollie Willams Consult Reason/Comments: chest pain Do you want consulting provider notified?: Yes 07/02/24 10:23 Consult Physician Routine Consulting Provider: Dov Marrero Consult Reason/Comments: Abdominal pain, left renal cyst Do you want consulting provider notified?: Yes Primary care physician: Tami Olmos Hospital Course: Discharge diagnoses; Palpitations with chest pain Left renal cyst Sinus tachycardia Diffuse abdominal pain with nausea and vomiting History of hypertension Diabetes mellitus, type II History of bicuspid aortic valve with On-X mechanical aortic valve follows at the [facility] Frequent alcohol use Obesity with a BMI 33.2 Hospital course; This is a pleasant 53-year-old male who presented to the emergency department with feelings of palpitations and not feeling well that has been ongoing since Thursday. Patient apparently did go to his primary care provider Dr. Olmos on Thursday and was told he may have norovirus. Other virology testing including RSV, COVID, influenza have all been negative and patient reports to having severe nausea with no vomiting and denies any diarrhea. Patient reports he drank around 6 beers the night before and woke up feeling this way. Patient reports this is not excessive for him and he does not do this daily. Patient denies any history of pancreatitis although was noted to be tender in the upper epigastric mid abdomen region. Patient reports he has a past medical history of diabetes mellitus, hypertension, aortic stenosis with a previous cardiac valve replacement and coronary bypass grafting, denies smoking or illicit drug use and as mentioned previously drinks on occasion. Chest x-ray shows no acute cardiopulmonary process. Labs reviewed show a white blood count of 10.5, hemoglobin 14.1, platelets 183, INR 1.5, sodium 128, potassium 3.8, BUN 15, creatinine 0.69, glucose 140, AST 34, ALT 54, troponins x 3 have been negative, TSH 2.22, virology testing including COVID, influenza, RSV are all negative. Patient was admitted under observation with cardiology to evaluate given his feelings of palpitations. 07/02. Patient seen and examined. CT abdomen pelvis done showed no acute process, bilateral nonobstructive renal calculi, left renal cyst. Patient was evaluated by urology, did recommend outpatient follow-up. Patient is feeling much better. Being discharged on increased dose of Toprol per cardiology recommendation PHYSICAL EXAMINATION: GENERAL: The patient is alert and oriented x3, not in any acute distress. Well developed, well nourished. HEENT: Pupils are round and equally reacting to light. EOMI. No scleral icterus. No conjunctival pallor. Normocephalic, atraumatic. No pharyngeal erythema. No thyromegaly. CARDIOVASCULAR: S1 and S2 present. No murmurs, rubs, or gallops. PULMONARY: Chest is clear to auscultation, no wheezing or crackles. ABDOMEN: Soft, nontender, nondistended, normoactive bowel sounds. No palpable organomegaly. MUSCULOSKELETAL: No joint swelling or deformity. EXTREMITIES: No cyanosis, clubbing, or pedal edema. NEUROLOGICAL: Gross neurological examination did not reveal any focal deficits. SKIN: No rashes. Dictation was produced using [employer] dictation software. please excuse any grammatical, word or spelling errors. Patient Condition at Discharge: Fair Plan - Discharge Summary Discharge Rx Participant: No New Discharge Prescriptions: New Metoprolol Succinate (ER) [Toprol XL] 50 mg PO DAILY 30 Days #30 tab Pantoprazole Sodium [Protonix] 40 mg PO DAILY 30 Days #30 tab Continue Empagliflozin [Jardiance] 25 mg PO DAILY Semaglutide [Ozempic] 1 mg SQ MO metFORMIN HCL 1,000 mg PO BID Warfarin [Coumadin] 7.5 mg PO [id number] Spironolactone 12.5 mg PO DAILY Warfarin [Coumadin] 10 mg PO [id number] busPIRone HCL [Buspar] 7.5 mg PO BID Discontinued Metoprolol Succinate (ER) [Toprol XL] 25 mg PO DAILY Discharge Medication List Empagliflozin [Jardiance] 25 mg PO DAILY 02/17/24 [History] Semaglutide [Ozempic] 1 mg SQ MO 02/17/24 [History] Spironolactone 12.5 mg PO DAILY 02/17/24 [History] Warfarin [Coumadin] 7.5 mg PO [id number]/24 [History] Warfarin [Coumadin] 10 mg PO [id number]/24 [History] metFORMIN HCL 1,000 mg PO BID 02/17/24 [History] busPIRone HCL [Buspar] 7.5 mg PO BID 07/01/24 [History] Metoprolol Succinate (ER) [Toprol XL] 50 mg PO DAILY 30 Days #30 tab 07/02/24 [Rx] Pantoprazole Sodium [Protonix] 40 mg PO DAILY 30 Days #30 tab 07/02/24 [Rx] Follow up Appointment(s)/Referral(s): Tami Olmos DO [Primary Care Provider] - 1-2 days Discharge Disposition: HOME SELF-CARE
[2024-07-02 13:41] LABS: Basophils % (A) 0 %; Eosinophils % (A) 1 %; HCT 45.2 % (39.0-53.0); Lymphocytes # (A) 1.1 k/uL (1.0-4.8); Lymphocytes % (A) 13 %; MCH 28.1 pg (25.0-35.0); MCHC 33.2 g/dL (31.0-37.0); MCV 84.7 fL (80.0-100.0); Mean Platelet Volume 7.4; Monocytes # (A) 0.5 k/uL (0-1.0); Monocytes % (A) 6 %; Neutrophils # (A) 6.5 k/uL (1.3-7.7); Neutrophils % (A) 78 %; Platelet Count 249 k/uL (150-450); RBC 5.34 m/uL (4.30-5.90); RDW 13.7 % (11.5-15.5); WBC 8.3 k/uL (3.8-10.6)
[2024-07-02 14:44] LABS: ALT 69 U/L (4-49); AST 39 U/L (17-59); African American GFR (CKD) >90 (>60 ml/min/1.73 sqM); Albumin/Globulin Ratio 1.5; Alkaline Phosphatase 149 U/L (38-126); Anion Gap 8 mmol/L; Blood Urea Nitrogen 15 mg/dL (9-20); Calcium 8.6 mg/dL (8.4-10.2); Carbon Dioxide 30 mmol/L (22-30); Chloride 97 mmol/L (98-107); Globulin 2.7 g/dL; Glucose 184 mg/dL (74-99); Non-African American GFR(CKD) >90 (>60 ml/min/1.73 sqM); Sodium 135 mmol/L (137-145); Total Bilirubin 0.9 mg/dL (0.2-1.3); Total Protein 6.7 g/dL (6.3-8.2)
[2024-07-02] MEDS ORDERED: WARFARIN 7.5 MG TAB PO SCH (20:00)
== END 2024-07-02 13:17 | disposition home or self-care (01) ==
LOC: EC 03:50 → 6NMEDSUR 07:41 → INTOOBSV 07:41 → 6NMEDSUR 14:15
PROVIDERS: ADMIT Internal Medicine; ATTEND Internal Medicine
DX: R07.9 Chest pain, unspecified (principal); R00.2 Palpitations; N28.1 Cyst of kidney, acquired; R00.0 Tachycardia, unspecified; R10.9 Unspecified abdominal pain; R11.2 Nausea with vomiting, unspecified; I10 Essential (primary) hypertension; E11.9 Type 2 diabetes mellitus without complications; E87.1 Hypo-osmolality and hyponatremia; N20.0 Calculus of kidney; F10.90 Alcohol use, unspecified, uncomplicated; E66.9 Obesity, unspecified; Z68.33 Body mass index [BMI] 33.0-33.9, adult; Z95.1 Presence of aortocoronary bypass graft; Z95.2 Presence of prosthetic heart valve; Z79.01 Long term (current) use of anticoagulants; Z79.85 Long-term (current) use of injectable non-insulin antidiabetic drugs; Z79.84 Long term (current) use of oral hypoglycemic drugs; Z79.899 Other long term (current) drug therapy
CPT/HCPCS: 96376 ×2; 96374; 96375; 99285; 36415; 93005 ×2; 80061; 80053 ×2; 82150; 83690; 83735; 84443; 84484; 85025 ×2; 85610 ×2; 85730; 83036; 87636; 71046; 74160; G0378 ×2; J3490; Q9967; J2470 ×2